=== PATIENT | female | born 1960 | race Caucasian/White ===

== ENCOUNTER 2021-03-24 17:16 | Emergency (ER) | payer MEDICARE, MEDICAID, SELFPAY | END 2021-03-24 19:10 | disposition left against medical advice (07) | PROVIDERS: Emergency Provider Emergency Medicine; PCP Internal Medicine | DX: S09.90XA Unspecified injury of head, initial encounter (principal); W19.XXXA Unspecified fall, initial encounter; Y93.9 Activity, unspecified; Y92.9 Unspecified place or not applicable; Y99.9 Unspecified external cause status ==

== ENCOUNTER 2022-04-20 13:12 | Emergency (ER) | payer MEDICARE, MEDICAID, SELFPAY ==
--- NOTE | ~2022-04-20 | CT_ITS ---
CT ANGIOGRAM NECK WITH CONTRAST CT ANGIOGRAM BRAIN WITH CONTRAST CLINICAL INFORMATION: Left facial and left arm/hand numbness. Rule out stroke. COMPARISON: None available. TECHNIQUE: Test bolus sequences followed by intravenous administration 70 mL of Omnipaque 350. Helical imaging was performed in the axial plane from the thoracic inlet to the skull vertex. Delayed postcontrast imaging of the head was also performed. The data was processed at the apparatus engineering technologist workstation for generation of MIP sequences. Angled MIPs and volume rendered reformatted images were also generated at an offline 3D workstation under concurrent supervision. Stenoses are assessed in accordance with NASCET criteria unless otherwise indicated. This CT examination was performed using dose optimization techniques as appropriate, variously including the following: *Automated exposure control *Adjustment of mA and/or kV according to patient size (this includes techniques or standardized protocols for targeted exams where dose is matched to indication/reason for exam; i.e. extremities or head) *Use of iterative reconstruction technique FINDINGS: BRAIN: [There is no intracranial hemorrhage, hydrocephalus, extra-axial surface collection, midline shift, or other herniation pattern. [place] to white matter differentiation is diffusely maintained without evidence of an evolved acute territorial infarct. The basilar cisterns are preserved. No significant soft tissue abnormality. No acute osseous abnormality. The paranasal sinuses and the mastoid air cells are well aerated.] Significant leftward deviation of the nasal septum. CERVICAL SOFT TISSUES AND LUNG APICES: Biapical pleural parenchymal scarring. Multilevel cervical spondylosis. No significant soft tissue findings within the neck. NECK CTA: [There is a classic 3 vessel configuration of the aortic arch. Proximal arch vessels are non-stenotic. The vertebral arteries are codominant. No significant ostial stenosis is visualized on either side. Both vertebral arteries are widely patent throughout their extracranial cervical course. Both common carotid arteries are normal in course and caliber.] Atherosclerotic disease results in less than 50% stenoses of the proximal internal carotid arteries bilaterally. BRAIN CTA: [There is normal opacification of major intracranial arteries. No focal flow-limiting stenosis nor discrete proximal large artery occlusion. No aneurysm. Timing of the contrast bolus allows assessment of the major dural venous sinuses, which all opacify normally] CT/CT angio head neck IMPRESSION: - No acute intracranial findings. If focal neurologic deficit persists, MRI would be more sensitive in evaluation. - No acute arterial occlusions and no significant arterial stenoses within the head or neck.
--- NOTE | ~2022-04-20 | XR_ITS ---
EXAMINATION: XR CHEST CLINICAL INFORMATION: Trochlea symptoms COMPARISON: 12/07/2018 TECHNIQUE: 2 views of the chest were obtained. FINDINGS: The lungs are well expanded. There is no focal consolidation, edema, or effusion. No pneumothorax. The cardiomediastinal silhouette is within normal limits. No acute osseous abnormality. Mild degenerative changes of the spine. XR/XR chest 2V IMPRESSION: No acute pulmonary finding.
[2022-04-20 13:22] VITALS: BP 177/88; PULSE 83; RESP 20; TEMP 37.1; O2SAT 96; BMI 24.5
--- NOTE | 2022-04-20 13:28 | ECG_ITS ---
Test Reason : l arm tingling Blood Pressure : / mmHG Vent. Rate : 083 BPM Atrial Rate : 083 BPM P-R Int : 120 ms QRS Dur : 084 ms QT Int : 378 ms P-R-T Axes : 036 026 037 degrees QTc Int : 444 ms Normal sinus rhythm Normal ECG When compared with ECG of 22-MAR-2019 01:04, No significant change was found Referred By: Generic ED Physician Electronically Signed By:SANTI HILL
[2022-04-20 13:45] LABS: MANUAL DIFF FLAG NO
[2022-04-20 13:47] LABS: Basophils Absolute Auto 0.1 X10*3/uL (0.0-0.2); Basophils Percent Auto 0.7 % (0-2); Eosinophils Absolute Auto 0.2 X10*3/uL (0.0-0.4); Eosinophils Percent Auto 2.4 % (0-4); Hematocrit 39.5 % (37.0-47.0); Hemoglobin 13.5 g/dl (12.0-16.0); Imm Gran Abs Auto 0.04 X10*3/uL (0.00-0.03); Imm Gran Pct Auto 0.5 % (0.0-0.4); Lymphocytes Absolute Auto 1.7 X10*3/uL (1.2-4.9); Lymphocytes Percent Auto 23.1 % (20-40); Mean Corpuscular HGB Conc 34.2 g/dl (31.0-35.0); Mean Corpuscular Hemoglobin 29.7 pg (27.0-33.0); Mean Corpuscular Volume 86.8 fL (80.0-98.0); Mean Platelet Volume 9.2 fL (9.4-12.3); Monocytes Absolute Auto 0.5 X10*3/uL (0.1-1.2); Neutrophils Absolute Auto 4.9 x10*3/uL (2.0-8.3); Neutrophils Percent Auto 66.3 % (45-73); Platelet Count 261 X10*3/uL (160-400); Red Blood Count 4.55 X10*6/uL (4.20-5.50); Red Cell Distribution Width 12.9 % (11.0-16.0); White Blood Count 7.4 X10*3/uL (4.8-10.8)
[2022-04-20 14:04] LABS: COVID-19 Test Negative (Negative); IDNOW Serial# 16C4AD1C
--- NOTE | 2022-04-20 14:12 | ED_ITS ---
HPI - Neuro Symptoms/Deficit General Chief Complaint: Stroke Stated Complaint: L Side Facial Arm Numbness Time Seen by Provider: 04/20/22 14:08 Source: patient, RN notes reviewed and old records reviewed Mode of arrival: ambulatory Limitations: no limitations History of Present Illness HPI Narrative: 62-year-old female with a past medical history of hypertension, not currently taking medications, presents to the emergency department today with left-sided facial numbness and left arm numbness. The patient states she had 1 episode approximately 11 30 which lasted about 10 minutes of left facial numbness alone. The patient states she looked in the mirror, and she was able to smile, and has not noted any loss of strength. Approximately 45 minutes later, the patient had another episode, which is still ongoing. She denies any headaches, visual disturbances, or motor weakness. Onset (ago): hour(s) Time: 11:30 Last Observed Normal: 11:30 Location: left face and left arm History of same: No Severity: moderate Quality: numb and tingling Relieving factors: none Exacerbating factors: none Context: sudden onset On Anticoagulants: No Treatments Prior to Arrival: Aspirin ( patient took 650 mg of aspirin prior to arrival) Related Data Allergies Allergy/AdvReac Type Severity Reaction Status Date / Time Penicillins [PENICILLINS] Allergy Unknown RASH Unverified 04/01/20 14:51 Review of Systems Constitutional: Constitutional: Denies fever(s) and Denies headache(s) Eyes: Eyes: Denies blurry vision, Denies loss of peripheral vision and Denies loss of vision ENT: Reports Normal hearing present, Denies headache(s), Denies epistaxis, Denies mouth pain and Denies neck pain Cardiovascular: Cardiovascular: Denies chest pain, Denies chest pain at rest and Denies dyspnea Respiratory: Respiratory: Denies dyspnea and Denies wheezing Gastrointestinal: Gastrointestinal: Denies abdominal pain, Denies diarrhea and Denies nausea Genitourinary: Genitourinary: Reports no additional female genitourinary complaints Musculoskeletal: Musculoskeletal: Reports no additional musculoskeletal complaints, Denies abnormal gait, Denies neck pain, Reports numbness and Reports tingling Integumentary/Breasts: Skin/Breast: Denies pruritus and Denies rash Neurologic: Reports Normal hearing present, Denies Abnormal speech present, Denies abnormal gait, Denies behavioral changes, Denies confusion, Denies headache(s), Denies lack of coordination, Denies focal weakness, Denies loss of vision, Denies memory loss, Reports numbness, Reports Sensory deficit (Neuro) ( decreased sensation noted left face and left dorsal surface of the arm), Reports tingling and Reports paresthesias Psychiatric: Psychiatric: Denies behavioral changes, Denies confusion and Denies memory loss Endocrine: Endocrine: Reports no additional endocrine complaints Hematologic/Lymphatic: Hematologic/Lymphatic: Reports no additional hematologic/lymphatic complaints Allergic/Immunologic: Allergic/Immunologic: Reports no additional allergic/immunologic complaints and Denies wheezing PMFSH Past Medical History Source: nursing notes reviewed Social History Social History Advance Directives: No Advance Directives Information Provided: No Physical Exam Vital Signs: Vital Signs: Last Vital Signs Temp 98.7 F 04/20/22 13:22 Pulse 83 04/20/22 13:22 Resp 20 04/20/22 13:22 BP 177/88 H 04/20/22 13:22 Pulse Ox 96 04/20/22 13:22 O2 Del Method 04/20/22 13:22 BMI result Body Mass Index 24.5 Const: General: cooperative, healthy appearing and comfortable; No confusion Nutritional Appearance: average body habitus Orientation/consciousness: oriented to person, oriented to place, oriented to time and No confusion HEENT: Head: Yes normal to inspection, Yes normocephalic, Yes atraumatic and No Temporal artery tenderness present Ears: hearing grossly normal bilaterally General nose exam: Normal external nose present Face and sinus: Yes face symmetric and Yes other ( numbness is noted to touch of the left side of the face) Mouth: Normal oral and palatal mucosa present and normal tongue Eyes: General: appearance normal, both eyes and all related structures Alignment and Position: position normal Periorbital: periorbital findings normal Eyelids: Yes eyelids normal Conjunctivae: conjunctivae normal Sclerae: sclerae normal Corneas: corneas normal Pupils: Equal, round and reactive pupils present and not dilated EOM: EOMs intact bilaterally Neck: Neck: Yes normal visual inspection, Yes full ROM and Yes no meningeal signs Chest: Chest palpation & inspection: normal inspection of the chest and no crepitus Resp: Effort & Inspection: normal respiratory effort, able to speak in complete sentences, no stridor and not tachypneic Auscultation: clear to auscultation bilaterally Cardio: Jugular venous distension: no JVD Rate: regular rate Rhythm: regular rhythm Heart sounds: no murmurs GI: Inspection: Yes normal to inspection : General: Yes no CVA tenderness Back/Spine/Pelvis: Back: no CVA tenderness Cervical Spine: cervical ROM normal Skin: General skin exam: no rashes or lesions noted, no jaundice and no mottling Wounds: no wounds Neuro: General: oriented to person, oriented to place, oriented to time, no meningeal signs, no focal motor deficits, CN's II-XI intact bilaterally, deep tendon reflexes 2+ bilaterally and No confusion Cranial nerves: Yes CN's II- XII intact bilaterally, Yes Equal, round and reactive pupils present and Yes Normal hearing present Cognition (Neuro): normal cognition Speech: No Abnormal speech present Gait exam (Neuro): Normal gait present Motor exam (neuro): 5/5 motor strength present throughout Sensory Exam: Sensory deficit (Neuro) ( decreased sensation noted left face and left dorsal surface of the arm) Coordination: [id number] test normal Pupils: Normal pupillary reactivity/response: bilateral Extrem: General: Yes normal to inspection and Yes full ROM Right upper extr emity: elbow/forearm Details: distal pulses intact Left upper extremity: elbow/forearm Details: normal to inspection and distal pulses intact Psych: Appearance: grossly normal and well kempt Mental Status: mental status grossly normal Speech and movement: Normal speech and movement present Affect: normal affect Attitude: cooperative Course Reevaluation(s) Reevaluation #1: Patient states that all of her symptoms have resolved except for some minimal residual numbness of the left upper lip. Time: 16:39 MDM - Neuro Symptoms/Deficit MDM Narrative Medical decision making narrative: 62-year-old female with past medical history of hypertension and a smoker who presented to the emergency department with symptoms of TIA (left facial numbness and left arm numbness ). Patient underwent CT and CTA of the head and neck which were unremarkable per Radiology. I discussed the continued workup with the patient which would include echocardiogram, MRI of the head and neck and potentially carotid duplex. The patient explained that she has a disabled at home who she needs to care for, and she is unable to stay in hospital for the additional workup. She states that she will call her primary care doctor 1st thing in the morning to arrange for outpatient testing. She is advised to continue aspirin daily, and return to the emergency department for recurrent or worsening symptoms. Differential Diagnosis Differential diagnosis: Likely peripheral neuropathy and transient cerebral ischemia Medical Records Attestation: I reviewed the patient's medical records. Lab Data Attestation: I reviewed the patient's lab results. Lab results narrative: CBC and chemistry are normal. PT, INR and COVID are all negative as well. Result diagrams: 04/20/22 13:40 04/20/22 13:40 Labs: Lab Results 04/20/22 04/20/22 04/20/22 Range/Units 13:40 13:40 13:40 WBC 7.4 (4.8-10.8) X10*3/uL RBC 4.55 (4.20-5.50) X10*6/uL Hgb 13.5 (12.0-16.0) g/dl Hct 39.5 (37.0-47.0) % MCV 86.8 (80.0-98.0) fL MCH 29.7 (27.0-33.0) pg MCHC 34.2 (31.0-35.0) g/dl RDW 12.9 (11.0-16.0) % Plt Count 261 (160-400) X10*3/uL MPV 9.2 L (9.4-12.3) fL Immature Gran % (Auto) 0.5 H (0.0-0.4) % Neut % (Auto) 66.3 (45-73) % Lymph % (Auto) 23.1 (20-40) % [place] % (Auto) 7.0 (2-11) % Eos % (Auto) 2.4 (0-4) % Baso % (Auto) 0.7 (0-2) % Lymph # (Auto) 1.7 (1.2-4.9) X10*3/uL [place] # (Auto) 0.5 (0.1-1.2) X10*3/uL Eos # (Auto) 0.2 (0.0-0.4) X10*3/uL Baso # (Auto) 0.1 (0.0-0.2) X10*3/uL Abs Immat Gran (auto) 0.04 H (0.00-0.03) X10*3/uL Absolute Neuts (auto) 4.9 (2.0-8.3) x10*3/uL Absolute Nucleated RBC 0.000 (0.0-0.012) X10*3/uL Nucleated RBC % (auto) 0.0 (0.0-0.2) /100WBC PT (10.0-13.1) SEC INR (0.9-1.1) Sodium 139 (135-145) mmol/L Potassium 4.1 (3.3-5.1) mmol/L Chloride 106 (96-108) mmol/L Carbon Dioxide 23 (22-29) mmol/L Anion Gap 14 (12-20) BUN 18 H (9-16) mg/dL Creatinine 0.95 (0.5-1.4) mg/dL Estim Creat Clear Calc 55.9 Estimated GFR 60 Random Glucose 109 (60-115) mg/dL Calcium 9.6 (8.4-10.2) mg/dL Total Bilirubin 0.3 (0.0-1.0) mg/dL Direct Bilirubin < 0.2 (0.0-0.5) mg/dL AST 17 (5-31) U/L ALT 16 (0-31) U/L Alkaline Phosphatase 93 (39-117) U/L Troponin I High Sens < 3.5 (<3.5-17.0) ng/L Total Protein 6.9 (6.5-8.0) g/dL Albumin 4.3 (3.5-5.0) g/dL Lipase 26 (8-78) U/L COVID-19 ([facility]) (Negative) COVID-19 Clin Com 04/20/22 04/20/22 Range/Units 13:40 14:55 WBC (4.8-10.8) X10*3/uL RBC (4.20-5.50) X10*6/uL Hgb (12.0-16.0) g/dl Hct (37.0-47.0) % MCV (80.0-98.0) fL MCH (27.0-33.0) pg MCHC (31.0-35.0) g/dl RDW (11.0-16.0) % Plt Count (160-400) X10*3/uL MPV (9.4-12.3) fL Immature Gran % (Auto) (0.0-0.4) % Neut % (Auto) (45-73) % Lymph % (Auto) (20-40) % [place] % (Auto) (2-11) % Eos % (Auto) (0-4) % Baso % (Auto) (0-2) % Lymph # (Auto) (1.2-4.9) X10*3/uL [place] # (Auto) (0.1-1.2) X10*3/uL Eos # (Auto) (0.0-0.4) X10*3/uL Baso # (Auto) (0.0-0.2) X10*3/uL Abs Immat Gran (auto) (0.00-0.03) X10*3/uL Absolute Neuts (auto) (2.0-8.3) x10*3/uL Absolute Nucleated RBC (0.0-0.012) X10*3/uL Nucleated RBC % (auto) (0.0-0.2) /100WBC PT 10.6 (10.0-13.1) SEC INR 0.9 (0.9-1.1) Sodium (135-145) mmol/L Potassium (3.3-5.1) mmol/L Chloride (96-108) mmol/L Carbon Dioxide (22-29) mmol/L Anion Gap (12-20) BUN (9-16) mg/dL Creatinine (0.5-1.4) mg/dL Estim Creat Clear Calc Estimated GFR Random Glucose (60-115) mg/dL Calcium (8.4-10.2) mg/dL Total Bilirubin (0.0-1.0) mg/dL Direct Bilirubin (0.0-0.5) mg/dL AST (5-31) U/L ALT (0-31) U/L Alkaline Phosphatase (39-117) U/L Troponin I High Sens (<3.5-17.0) ng/L Total Protein (6.5-8.0) g/dL Albumin (3.5-5.0) g/dL Lipase (8-78) U/L COVID-19 ([facility]) Negative (Negative) COVID-19 Clin Com See Note Imaging Data CT/CTA of the head: Radiologist's impression: - No acute intracranial findings. If focal neurologic deficit persists, MRI would be more sensitive in evaluation. ? - No acute arterial occlusions and no significant arterial stenoses within the head or neck. ECG Data Attestation: I personally reviewed and interpreted this ECG as follows: ECG interpretation date: 04/20/22 ECG interpretation time: 14:10 Interpretation: EKG shows a normal sinus rhythm, with normal intervals and a normal rate of 83. No acute ischemic changes are noted. There is a biphasic T-wave in lead V2, but otherwise unremarkable. Scores Additional Scores ABCD2 Score: Score: 3 Comment: ABCD? Score for TIA from [employer] on 04/20/2022 All calculations should be rechecked by clinician prior to use RESULT SUMMARY: 3 points Per the validation study, 0-3 points: Low Risk 2-Day Stroke Risk: 1.0% 7-Day Stroke Risk: 1.2% 90-Day Stroke Risk: 3.1% INPUTS: Age >=60 years ?> 1 = Yes BP >=140/90 mmHg ?> 1 = Yes Clinical features of the TIA ?> 0 = Other symptoms Duration of symptoms ?> 1 = 10-59 minutes History of diabetes ?> 0 = No NIH Stroke Scale Internal: Initial- Upon Arrival Time: 14:37 Level of Consciousness: Alert Level of Consciousness Questions: Answers both questions correctly Level of Consciousness Commands: Performs both tasks correctly Best Gaze: Normal Visual: No visual loss Facial Palsy: Normal Motor Arm (Right): No drift Motor Arm (Left): No drift Motor Leg (Right): No drift Motor Leg (Left): No drift Limb Ataxia: Absent Sensory: Mild to moderate sensory loss Best Language: No aphasia Dysarthia: Normal Extinction and Inattention: No abnormality Score: 1 Discharge Plan Discharge Clinical Impression: Transient cerebral ischemia Patient Disposition: Left Against Medical Advice Instructions: Transient Ischemic Attack (ED) Additional Instructions: It is imperative that you call your primary care physician tomorrow. You need an MRI of the head and neck, and echocardiogram, and possibly a carotid duplex ultrasound to fully evaluate and rule out TIA/stroke. Continue to take aspirin, 325 mg once daily. Stand Alone Forms: Against Medical Advice
[2022-04-20 14:18] LABS: Alanine Aminotransferase 16 U/L (0-31); Albumin Level 4.3 g/dL (3.5-5.0); Alkaline Phosphatase 93 U/L (39-117); Anion Gap 14 (12-20); Aspartate Amino Transferase 17 U/L (5-31); Bilirubin Direct < 0.2 mg/dL (0.0-0.5); Bilirubin Total 0.3 mg/dL (0.0-1.0); Blood Urea Nitrogen 18 mg/dL (9-16); Calcium 9.6 mg/dL (8.4-10.2); Carbon Dioxide 23 mmol/L (22-29); Chloride 106 mmol/L (96-108); Creatinine Clr Calc Pharmacy 55.9; Estimated Glomerular Filt Rate 60; Glucose Random 109 mg/dL (60-115); Lipase 26 U/L (8-78); Potassium 4.1 mmol/L (3.3-5.1); Sodium 139 mmol/L (135-145); Total Protein 6.9 g/dL (6.5-8.0)
[2022-04-20 14:19] LABS: Troponin-I High Sensitivity < 3.5 ng/L (<3.5-17.0)
[2022-04-20 15:29] LABS: INTERNATIONAL NORM RATIO 0.9 (0.9-1.1); Prothrombin Time 10.6 SEC (10.0-13.1)
[2022-04-20] MEDS: iohexoL 350 MG/ML 100 ML INFUS..BTL IV (15:45)
== END 2022-04-20 17:47 | disposition left against medical advice (07) ==
PROVIDERS: Emergency Provider Emergency Medicine
DX: G45.9 Transient cerebral ischemic attack, unspecified (principal); R20.0 Anesthesia of skin; I10 Essential (primary) hypertension; F17.210 Nicotine dependence, cigarettes, uncomplicated; Z20.822 Contact with and (suspected) exposure to COVID-19
CPT/HCPCS: 36415; 70496; 70498; 71046; 80048; 80076; 83690; 84484; 85025; 85610; 87635; 93005; 99283; 99284; Q9967

== ENCOUNTER 2022-04-21 08:01 | Inpatient (IN) | payer MEDICARE, MEDICAID, SELFPAY ==
[2022-04-21] VITALS (9 sets, daily range): BP systolic 147–188; BP diastolic 72–97; PULSE 62–82; RESP 14–20; TEMP 36.4–37.1; O2SAT 93–99; BMI 24.4
--- NOTE | ~2022-04-21 | MR_ITS ---
EXAMINATION: MR BRAIN WITHOUT CONTRAST CLINICAL INFORMATION: Left-sided facial numbness. Left arm numbness. COMPARISON: CTA head and neck from 04/20/2022. TECHNIQUE: MRI of the brain was obtained using routine sequences without contrast. FINDINGS: Small focus of restricted diffusion within the lateral aspect of the right thalamus. Associated T2 FLAIR hyperintensity. No additional restricted diffusion. No evidence of acute or chronic hemorrhagic products on heme-sensitive imaging. Scattered periventricular and deep white matter T2 FLAIR hyperintensities consistent with mild underlying microangiopathy. Proportional prominence of the ventricles and sulcal spaces without evidence of obstructive hydrocephalus. No abnormal mass effect. No midline shift. The sella turcica is mildly expanded with flattening of the pituitary gland. Normal positioning of the cerebellar tonsils. Normal arterial and venous vascular flow voids are present. Normal, homogeneous marrow signal. Mild mucosal thickening of the paranasal sinuses. Moderate leftward nasal septal deviation. No signal abnormalities within the mastoids. MR/MR head/brain wo con IMPRESSION: 1. Small acute infarct of the right thalamus. 2. No additional acute intracranial abnormalities. 3. Mild underlying microangiopathy.
--- NOTE | 2022-04-21 09:09 | PC.NURSE ---
PT AMBULATORY IN/OUT OF ED SEVERAL TIMES TO GO SMOKE. SHE IS UPSET STATING SHE SHOULD GET PRIORITY, PROCESS REVIEWED WITH PT
--- NOTE | 2022-04-21 11:50 | ED_ITS ---
HPI - Neuro Symptoms/Deficit General Chief Complaint: Neuro Symptoms/Deficit Stated Complaint: stroke symptoms Time Seen by Provider: 04/21/22 11:49 Source: patient Mode of arrival: ambulatory Limitations: no limitations History of Present Illness HPI Narrative: The patient is a 62 year old female with a PMG significant for uncontrolled HTN. The patient reports she developed numbness of her left face at 11:30am y esterday, the numbness went away after 30 minutes. She then developed numbness of the left face and arm at 12:30pm and she seeked medical attention in the ER. She had negative CTA head/neck at that time. Her symptoms resolved. She refused to be admitted and proceeded to go home. Then at 9pm yesterday her symptoms returned, she awoke at 2am with worsening of symptoms and returned to the ED. The patient reports she is currently experiencing her symptoms and they have sense worsened. The patient reports numbness is like getting a shot of novacane she is experiencing it on the left side of her face, and the inside of her mouth and left arm, a tight band like headache, and left eye burning. The patient denies fever, close sick contacts, and recent trauma. The patient reports having chicken poxs as a child. The patient is not on any HTN medication and she endorses .5 PPD Onset (ago): day(s) (1) Time: 21:00 Location: left face and left arm History of same: Yes Severity: moderate Quality: numb, tingling and constant Relieving factors: none Exacerbating factors: none Context: gradual onset On Anticoagulants: No Treatments Prior to Arrival: none Related Data Home Medications Medication Instructions Recorded Confirmed aspirin 325 mg tablet 325 mg PO Q4H PRN Pain (Scale 04/21/22 04/21/22 Score 1-3) calcium carbonate 600 mg calcium 600 mg PO DAILY 04/21/22 04/21/22 (1,500 mg) tablet (Calcium) cholecalciferol (vitamin D3) 25 25 mcg PO DAILY 04/21/22 04/21/22 mcg (1,000 unit) capsule (Vitamin D3) magnesium oxide 400 mg PO DAILY 04/21/22 04/21/22 turmeric root extract 500 mg 500 mg PO DAILY 04/21/22 04/21/22 capsule Allergies Allergy/AdvReac Type Severity Reaction Status Date / Time Penicillins [PENICILLINS] Allergy Unknown RASH Unverified 04/01/20 14:51 Review of Systems Review of Systems: Constitutional: No Fever, No Chills ENT/Mouth: No sore throat, No Rhinorrhea, No Swallowing Difficulty Eyes: No Eye Pain, No Swelling, No Redness Cardiovascular: No Chest Pain, No SOB, No Orthopnea, No Edema Respiratory: No Cough, No Sputum, No Wheezing, No dyspnea Gastrointestinal: No Nausea, No Vomiting, No Diarrhea, No abdominal Pain, No Hematochezia, No Melena Genitourinary: No Dysuria, No Urinary Frequency, No Hematuria Musculoskeletal: No joint pain, No Myalgias Skin: No Skin Lesions, No rash Neuro: No Weakness, + left face and left arm Numbness, No Dizziness, + Headache Psych: No Anxiety/Panic, No Depression Heme/Lymph: No Bruising, No Lymphadenopathy Endocrine: No Polyuria, No Polydipsia PMFSH Social History Social History Advance Directives: No Advance Directives Information Provided: No Physical Exam Vital Signs: Vital Signs: Last Vital Signs Temp 97.8 F 04/21/22 14:19 Pulse 62 04/21/22 14:19 Resp 16 04/21/22 14:19 BP 185/93 H 04/21/22 14:19 Pulse Ox 94 04/21/22 14:19 O2 Del Method 04/21/22 14:19 BMI result Body Mass Index 24.4 Appearance: Alert. Oriented X3. No acute distress. Eyes: Pupils equal, round and reactive to light. ENT: Pharynx normal. Bulging left TM noted, unable to see the right TM due to cerumen. Neck: Normal inspection. Neck supple. CVS: Normal heart rate and rhythm. Pulses normal. Respiratory: No respiratory distress. Breath sounds normal. Skin: Skin warm and dry. Normal skin color. Normal skin turgor. No rashes. Extremities: No lower extremity edema. Neuro: Oriented X 3. No motor deficit. + subjective sensory deficit to left face and left UE. CN II-XII intact bilaterally. Left sided abnomal nose to finger test. No pronator drift, Normal heel to wilks, steady and stable gait, able to heel walk and toe walk, normal tandem gait. Normal Rapid alternating movements. Negative Romberg test. Course Course Course Narrative: The patient is a 62 year old female with a PMH of unmanaged HTN. The patient reports left sided face and left arm numbness for 1 day. The patient has no CVA history - no history of blood clots, NM or coagulation abnormalities. Exam significant for a left budging TM and abnormal left sided finger to nose test. Pateint was seen in the ED yesterday for similar presentation, but left AMA. Patient is willing to be admitted. DDX: CVA vs TIA - ongoing numbness today. NEEDS MRI HTN Urgency - symptoms could be due to poorly controlled HTN. Shingles is unlikely due to lack of rash, and numbness does not follow a dermatomal pattern. Trigeminal Neuralgia may explain the eliud-Paresthesia, though would not present with left are paresthesia. Arterial dissection/ occlusion is unlikely - patient does not have neck pain, or signs of low perfusion. Plan: - MRI - Will need admission for CVA and TIA workup, she is agreeable at this time - CTA of the head and neck is not indicated at this time due to the patient having a negative CTA yesterday - Patient is not a TPA candidate - BP control with PO lisinopril for now, reassess. get IV access Reevaluation(s) Reevaluation #1: BP elevated 200/100 after 5 mg oral lisinopril. will give 10 mg IV labetalol and reassess. MRI still pending. Planning for admission, hospitalist down to evaluate Reevaluation #2: Hospitalist deferring admission for now until BP improved. Reevaluation #3: after 10 mg IV labetalol BP improved to 170s systolic. hospitalist updated. MDM - Neuro Symptoms/Deficit Medical Records Attestation: I reviewed the patient's medical records. Lab Data Attestation: I reviewed the patient's lab results. Result diagrams: 04/21/22 12:31 04/21/22 12:31 Labs: Lab Results 04/21/22 04/21/22 04/21/22 Range/Units 12:31 12:31 12:31 WBC 6.1 (4.8-10.8) X10*3/uL RBC 4.66 (4.20-5.50) X10*6/uL Hgb 13.5 (12.0-16.0) g/dl Hct 40.6 (37.0-47.0) % MCV 87.1 (80.0-98.0) fL MCH 29.0 (27.0-33.0) pg MCHC 33.3 (31.0-35.0) g/dl RDW 13.1 (11.0-16.0) % Plt Count 269 (160-400) X10*3/uL MPV 9.3 L (9.4-12.3) fL Immature Gran % (Auto) 0.5 H (0.0-0.4) % Neut % (Auto) 62.5 (45-73) % Lymph % (Auto) 26.3 (20-40) % [place] % (Auto) 7.0 (2-11) % Eos % (Auto) 2.9 (0-4) % Baso % (Auto) 0.8 (0-2) % Lymph # (Auto) 1.6 (1.2-4.9) X10*3/uL [place] # (Auto) 0.4 (0.1-1.2) X10*3/uL Eos # (Auto) 0.2 (0.0-0.4) X10*3/uL Baso # (Auto) 0.1 (0.0-0.2) X10*3/uL Abs Immat Gran (auto) 0.03 (0.00-0.03) X10*3/uL Absolute Neuts (auto) 3.8 (2.0-8.3) x10*3/uL Absolute Nucleated RBC 0.000 (0.0-0.012) X10*3/uL Nucleated RBC % (auto) 0.0 (0.0-0.2) /100WBC PT 10.1 (10.0-13.1) SEC INR 0.9 (0.9-1.1) APTT 30.4 (26.0-36.4) SEC Sodium 140 (135-145) mmol/L Potassium 4.1 (3.3-5.1) mmol/L Chloride 107 (96-108) mmol/L Carbon Dioxide 24 (22-29) mmol/L Anion Gap 13 (12-20) BUN 17 H (9-16) mg/dL Creatinine 0.82 (0.5-1.4) mg/dL Estim Creat Clear Calc 64.8 Estimated GFR > 60 Random Glucose 111 (60-115) mg/dL Calcium 9.5 (8.4-10.2) mg/dL Magnesium 1.9 (1.6-2.6) mg/dL Total Bilirubin < 0.2 (0.0-1.0) mg/dL Direct Bilirubin < 0.2 (0.0-0.5) mg/dL AST 16 (5-31) U/L ALT 17 (0-31) U/L Alkaline Phosphatase 93 (39-117) U/L Total Protein 6.8 (6.5-8.0) g/dL Albumin 4.3 (3.5-5.0) g/dL Urine Opiates Screen (Not Detect) Urine Fentanyl Screen (Not Detect) Ur Barbiturates Screen (Not Detect) Ur Phencyclidine Scrn (Not Detect) Ur Amphetamines Screen (Not Detect) U Benzodiazepines Scrn (Not Detect) Urine Cocaine Screen (Not Detect) U Marijuana (THC) Screen (Not Detect) COVID-19 (MANINDER) (Negative) COVID-19 Clin Com 04/21/22 04/21/22 Range/Units 12:31 13:03 WBC (4.8-10.8) X10*3/uL RBC (4.20-5.50) X10*6/uL Hgb (12.0-16.0) g/dl Hct (37.0-47.0) % MCV (80.0-98.0) fL MCH (27.0-33.0) pg MCHC (31.0-35.0) g/dl RDW (11.0-16.0) % Plt Count (160-400) X10*3/uL MPV (9.4-12.3) fL Immature Gran % (Auto) (0.0-0.4) % Neut % (Auto) (45-73) % Lymph % (Auto) (20-40) % [place] % (Auto) (2-11) % Eos % (Auto) (0-4) % Baso % (Auto) (0-2) % Lymph # (Auto) (1.2-4.9) X10*3/uL [place] # (Auto) (0.1-1.2) X10*3/uL Eos # (Auto) (0.0-0.4) X10*3/uL Baso # (Auto) (0.0-0.2) X10*3/uL Abs Immat Gran (auto) (0.00-0.03) X10*3/uL Absolute Neuts (auto) (2.0-8.3) x10*3/uL Absolute Nucleated RBC (0.0-0.012) X10*3/uL Nucleated RBC % (auto) (0.0-0.2) /100WBC PT (10.0-13.1) SEC INR (0.9-1.1) APTT (26.0-36.4) SEC Sodium (135-145) mmol/L Potassium (3.3-5.1) mmol/L Chloride (96-108) mmol/L Carbon Dioxide (22-29) mmol/L Anion Gap (12-20) BUN (9-16) mg/dL Creatinine (0.5-1.4) mg/dL Estim Creat Clear Calc Estimated GFR Random Glucose (60-115) mg/dL Calcium (8.4-10.2) mg/dL Magnesium (1.6-2.6) mg/dL Total Bilirubin (0.0-1.0) mg/dL Direct Bilirubin (0.0-0.5) mg/dL AST (5-31) U/L ALT (0-31) U/L Alkaline Phosphatase (39-117) U/L Total Protein (6.5-8.0) g/dL Albumin (3.5-5.0) g/dL Urine Opiates Screen Not Detected (Not Detect) Urine Fentanyl Screen Not Detected (Not Detect) Ur Barbiturates Screen Not Detected (Not Detect) Ur Phencyclidine Scrn Not Detected (Not Detect) Ur Amphetamines Screen Not Detected (Not Detect) U Benzodiazepines Scrn Not Detected (Not Detect) Urine Cocaine Screen Not Detected (Not Detect) U Marijuana (THC) Screen Not Detected (Not Detect) COVID-19 (MANINDER) Negative (Negative) COVID-19 Clin Com See Note ECG Data Attestation: I personally reviewed and interpreted this ECG as follows: ECG interpretation date: 04/21/22 Prior ECG tracings: available for review Interpretation: normal sinus rhythm, HR 63, normal SC interval, normal QTc, no change from yesterday NIH Stroke Scale Internal: Initial- Upon Arrival Time: 12:22 Level of Consciousness: Alert Level of Consciousness Questions: Answers both questions correctly Level of Consciousness Commands: Performs both tasks correctly Best Gaze: Normal Visual: No visual loss Facial Palsy: Normal Motor Arm (Right): No drift Motor Arm (Left): No drift Motor Leg (Right): No drift Motor Leg (Left): No drift Limb Ataxia: Absent Sensory: Mild to moderate sensory loss Best Language: No aphasia Dysarthia: Normal Extinction and Inattention: No abnormality Score: 1 Critical Care Time Critical Care Time Critical Care Time: Yes Total Critical Care Time: 35 Attestation: I have personally provided critical care time exclusive of time spent on separately billable procedures. Time includes review of lab data, frequent bedside reassessments, discussion with consultants, and monitoring for potential decompensation. Intervention performed as documented. Discharge Plan Discharge Clinical Impression: Hypertensive urgency, Left facial numbness, Arm numbness left Patient Disposition: Admitted As Inpatient
--- NOTE | 2022-04-21 12:15 | ECG_ITS ---
Test Reason : STROKE SYMPTOMS Blood Pressure : / mmHG Vent. Rate : 063 BPM Atrial Rate : 063 BPM P-R Int : 112 ms QRS Dur : 100 ms QT Int : 430 ms P-R-T Axes : 030 050 056 degrees QTc Int : 440 ms Normal sinus rhythm Normal ECG When compared with ECG of 20-APR-2022 13:32, No significant change was found Referred By: Tanisha Schroeder Electronically Signed By:SANTI HILL
[2022-04-21 12:38] LABS: MANUAL DIFF FLAG NO
[2022-04-21 12:44] LABS: Basophils Absolute Auto 0.1 X10*3/uL (0.0-0.2); Basophils Percent Auto 0.8 % (0-2); Eosinophils Absolute Auto 0.2 X10*3/uL (0.0-0.4); Eosinophils Percent Auto 2.9 % (0-4); Hematocrit 40.6 % (37.0-47.0); Hemoglobin 13.5 g/dl (12.0-16.0); Imm Gran Abs Auto 0.03 X10*3/uL (0.00-0.03); Imm Gran Pct Auto 0.5 % (0.0-0.4); Lymphocytes Absolute Auto 1.6 X10*3/uL (1.2-4.9); Lymphocytes Percent Auto 26.3 % (20-40); Mean Corpuscular HGB Conc 33.3 g/dl (31.0-35.0); Mean Corpuscular Volume 87.1 fL (80.0-98.0); Mean Platelet Volume 9.3 fL (9.4-12.3); Monocytes Absolute Auto 0.4 X10*3/uL (0.1-1.2); Neutrophils Absolute Auto 3.8 x10*3/uL (2.0-8.3); Neutrophils Percent Auto 62.5 % (45-73); Platelet Count 269 X10*3/uL (160-400); Red Blood Count 4.66 X10*6/uL (4.20-5.50); Red Cell Distribution Width 13.1 % (11.0-16.0); White Blood Count 6.1 X10*3/uL (4.8-10.8)
[2022-04-21 12:50] LABS: INTERNATIONAL NORM RATIO 0.9 (0.9-1.1); Prothrombin Time 10.1 SEC (10.0-13.1)
[2022-04-21 12:52] LABS: Partial Thromboplastin Time 30.4 SEC (26.0-36.4)
[2022-04-21 12:58] LABS: COVID-19 Test Negative (Negative); IDNOW Serial# 9DB6401D
[2022-04-21 13:01] LABS: Alanine Aminotransferase 17 U/L (0-31); Albumin Level 4.3 g/dL (3.5-5.0); Alkaline Phosphatase 93 U/L (39-117); Anion Gap 13 (12-20); Aspartate Amino Transferase 16 U/L (5-31); Blood Urea Nitrogen 17 mg/dL (9-16); Calcium 9.5 mg/dL (8.4-10.2); Carbon Dioxide 24 mmol/L (22-29); Chloride 107 mmol/L (96-108); Creatinine Clr Calc Pharmacy 64.8; Estimated Glomerular Filt Rate > 60; Glucose Random 111 mg/dL (60-115); Magnesium 1.9 mg/dL (1.6-2.6); Potassium 4.1 mmol/L (3.3-5.1); Sodium 140 mmol/L (135-145); Total Protein 6.8 g/dL (6.5-8.0)
--- NOTE | 2022-04-21 13:10 | PHA.MEDREC ---
Pharmacy Consult ? Medication Reconciliation Pharmacy has completed the medication reconciliation. Spoke with patient in ED. Pt is only on OTC medications
[2022-04-21 13:14] LABS: Bilirubin Direct < 0.2 mg/dL (0.0-0.5); Bilirubin Total < 0.2 mg/dL (0.0-1.0)
[2022-04-21] MEDS: Nicotine 14 MG PATCH.TD24 TRANSDERMA (13:26)
[2022-04-21] MEDS: lisinopriL 5 MG TABLET PO (13:26)
[2022-04-21 13:45] LABS: Barbiturates, Urine Not Detected (Not Detect); Benzodiazepines Screen Urine Not Detected (Not Detect); Cannabinoid Screen Urine Not Detected (Not Detect); Fentanyl, urine Not Detected (Not Detect); Opiate Screen Urine Not Detected (Not Detect); Phencyclidine Screen Urine Not Detected (Not Detect)
[2022-04-21 13:56] LABS: Amphetamine Screen Urine Not Detected (Not Detect); Cocaine Screen Urine Not Detected (Not Detect)
[2022-04-21] MEDS: Labetalol HCL 100 MG/20 ML VIAL 10 MG IVPUSH (14:43)
--- NOTE | 2022-04-21 14:51 | MHC.STROKE ---
Addendum entered by Nicolle De Leon RN 04/21/22 19:47: Patient was assigned to Observation status by Dr. Logan, the MRI is + for a right Thalamic Ischemic Stroke which correlates with her symptoms. Dr. Hill notified. All stroke orders in place. Original Note: I MET WITH PATIENT AND I REVIEWED HER PRESENTATION WITH HER. 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 SHE CAME BACK TODAY BECAUSE THE SYMPTOMS RETURNED LAST NIGHT 04/20/22 AT 2100, THIS WAS THE 3RD TIME, LEFT FACE, ARM AND LEG NUMBNESS. SHE DECIDED TO COME BACK TODAY TO FIGURE OUT WHAT IS WRONG. SHE PASSED SWALLOW SCREEN PRIOR TO PO. I EXPLAINED WHY SHE WAS HAVING THE MRI. I REVIEWED THE STROKE EDUCATION BOOKLET AND HER INDIVIDUAL RISK FACTORS.
--- NOTE | 2022-04-21 15:18 | PC.NURSE ---
Stroke nurse Nicolle and KOKI Garay do not think it is necessary to have patient on peoplesoft hr developer in MRI.
--- NOTE | 2022-04-21 16:52 | P.HPHOSP_ITS ---
History of Present Illness Date of Service: 04/21/22 Attending physician on admission: Shukri Logan Chief Complaint: left face and left arm numbness 62-year-old female patient with past medical history significant for hypertension not on medication presented to [facility] on 04/20/2022 after she developed a brief episode of left facial numbness that lasted for 10- 15 minutes and resolved by itself, and hour later patient developed left facial numbness with radiation to left arm she took a dose of aspirin and came to the emergency room she had a CT head and neck done that showed no abnormality patient was advised for admission however she refused since she had to take care of her disabled part in a but at 21:00 last night symptoms returned with numbness of face radiating to left arm with no associated symptoms of speech impairment no visual symptoms no motor weakness the symptoms became worse she felt like Novocain so she woke up with the symptoms at 02:00 and return to the emergency room patient's symptoms are persistent without any change in intensity, she told emergency room provider that she had a bandlike headache and left eye burning at present she has no symptoms she denies associated fever chills she denies new medication she denies any trauma injury denies prior similar symptoms has had multiple to hold and she feels similar numbness like a Novocain shot, patient also noted to have significantly elevated blood pressure 200/110 in the emergency room treated with 10 mg of iv labetalol x2 and lisinopril with improvement in blood pressure to 177/82. Review of Systems Review of Systems: General no headache no dizziness no fever chills. CVS no chest pain, no palpitation. Respiratory no cough no sob. Gastrointestinal no nausea no vomiting, no abdominal pain Yes all other systems are reviewed and are negative [facility] Medical History (Updated 04/21/22 @ 17:02 by Shukri Logan MD) Hypertension Pertinent family history: mother alive and healthy has no medical issues, father of heart disease at age 79 no history of stroke no history of premature coronary artery disease. Social History Advance Directives: No Advance Directives Information Provided: No Meds Allergies Allergy/AdvReac Type Severity Reaction Status Date / Time Penicillins [PENICILLINS] Allergy Unknown RASH Unverified 04/01/20 14:51 Active Medications: Current Medications Acetaminophen (Acetaminophen 325 Mg Tablet) 650 mg PO Q6H PRN PRN Reason: Pain, Mild (Pain Scale 1-3) Amlodipine Besylate (Amlodipine Besylate 5 Mg Tablet) 5 mg PO DAILY MILTON; P rotocol Calcium Carbonate (Calcium Carbonate 500 Mg Tablet) 500 mg PO DAILY [facility] Enoxaparin Sodium (Enoxaparin Sodium 40 Mg/0.4 Ml Syringe) 40 mg SUBCUT Q24H [place] Magnesium Oxide (Magnesium Oxide 400 Mg Tablet) 400 mg PO DAILY [facility] Melatonin (Melatonin 3 Mg Tablet) 3 mg PO BEDTIME PRN PRN Reason: Insomnia Ondansetron HCl (Ondansetron Hcl 4 Mg/2 Ml Vial) 4 mg IVPUSH Q8H PRN PRN Reason: Nausea and Vomiting Pharmacy Consult (Consult Rx Perform Med Rec) 1 each MISCELLANE ONCE PRN PRN Reason: Consult order Sodium Chloride (0.9 % Sodium Chloride Flush 3 Ml Syringe) 3 ml IVFLUSH QSHIFT [facility] Vitamin D (Cholecalciferol (Vitamin D3) 25 Mcg Tablet) 25 mcg PO DAILY [facility] Home Medications Medication Instructions Recorded Confirmed Last Taken Type aspirin 325 mg tablet 325 mg PO Q4H PRN Pain (Scale 04/21/22 04/21/22 Unknown History Score 1-3) calcium carbonate 600 mg calcium 600 mg PO DAILY 04/21/22 04/21/22 Unknown History (1,500 mg) tablet (Calcium) cholecalciferol (vitamin D3) 25 25 mcg PO DAILY 04/21/22 04/21/22 Unknown History mcg (1,000 unit) capsule (Vitamin D3) magnesium oxide 400 mg PO DAILY 04/21/22 04/21/22 Unknown History turmeric root extract 500 mg 500 mg PO DAILY 04/21/22 04/21/22 Unknown History capsule Physical Exam Vital Signs and Narrative: Vital Signs: Last Vital Signs Temp 98.8 F 04/21/22 16:21 Pulse 66 04/21/22 16:21 Resp 19 04/21/22 16:21 BP 177/82 H 04/21/22 16:21 Pulse Ox 96 04/21/22 16:21 O2 Del Method 04/21/22 16:21 BMI result Body Mass Index 24.4 Const: Other: General Awake alert x3 sitting comfortably talking in full sentences clear speech, no acute distress. HEENT PERRLA,EOMI Neck supple no JVD. CVS regular rate rhythm, Respiratory lungs clear to auscultation, no respiratory distress, Gastrointestinal abdomen soft, nontender, bowel sounds audible Extremities no edema. Neuro nonfocal speech clear, face symmetrical no motor deficit, decreased sensation left side of face and left arm up to left hand. Skin no rash psych appropriate affect Results Labs CBC and Chem 7: 04/21/22 12:31 04/21/22 12:31 Labs: Laboratory Results - last 24 hr 04/21/22 04/21/22 04/21/22 12:31 12:31 12:31 MCV 87.1 MCH 29.0 MCHC 33.3 RDW 13.1 Plt Count 269 MPV 9.3 L Immature Gran % (Auto) 0.5 H Neut % (Auto) 62.5 Lymph % (Auto) 26.3 [place] % (Auto) 7.0 Eos % (Auto) 2.9 Baso % (Auto) 0.8 Lymph # (Auto) 1.6 [place] # (Auto) 0.4 Eos # (Auto) 0.2 Baso # (Auto) 0.1 Abs Immat Gran (auto) 0.03 Absolute Neuts (auto) 3.8 Absolute Nucleated RBC 0.000 Nucleated RBC % (auto) 0.0 PT 10.1 INR 0.9 APTT 30.4 Anion Gap 13 Estim Creat Clear Calc 64.8 Estimated GFR > 60 Random Glucose 111 Calcium 9.5 Magnesium 1.9 Total Bilirubin < 0.2 Direct Bilirubin < 0.2 AST 16 ALT 17 Alkaline Phosphatase 93 Total Protein 6.8 Albumin 4.3 Urine Opiates Screen Urine Fentanyl Screen Ur Barbiturates Screen Ur Phencyclidine Scrn Ur Amphetamines Screen U Benzodiazepines Scrn Urine Cocaine Screen U Marijuana (THC) Screen COVID-19 (MANINDER) COVID-19 Clin Com 04/21/22 04/21/22 12:31 13:03 MCV MCH MCHC RDW Plt Count MPV Immature Gran % (Auto) Neut % (Auto) Lymph % (Auto) [place] % (Auto) Eos % (Auto) Baso % (Auto) Lymph # (Auto) [place] # (Auto) Eos # (Auto) Baso # (Auto) Abs Immat Gran (auto) Absolute Neuts (auto) Absolute Nucleated RBC Nucleated RBC % (auto) PT INR APTT Anion Gap Estim Creat Clear Calc Estimated GFR Random Glucose Calcium Magnesium Total Bilirubin Direct Bilirubin AST ALT Alkaline Phosphatase Total Protein Albumin Urine Opiates Screen Not Detected Urine Fentanyl Screen Not Detected Ur Barbiturates Screen Not Detected Ur Phencyclidine Scrn Not Detected Ur Amphetamines Screen Not Detected U Benzodiazepines Scrn Not Detected Urine Cocaine Screen Not Detected U Marijuana (THC) Screen Not Detected COVID-19 (MANINDER) Negative COVID-19 Clin Com See Note Assessment and Plan (1) Hypertensive urgency: Status: Acute (2) Left facial numbness: Status: Acute (3) Arm numbness left: Status: Acute Plan 62-year-old female patient with past medical history significant for uncontrolled hypertension not on antihypertensive medication presented to [facility] with on and off episode of left facial numbness with radiation to left arm with no associated weakness numbness speech or visual impairment . left facial and left upper extremity numbness question etiology question related to elevated blood pressure head and neck CT showed no acute intracranial findings no acute arterial occlusion within the head and neck noted no evidence of acute infection no trauma no injury findings not consistent with Velazquez's palsy or trigeminal neuralgia MRI ordered by ED provider obtain lipid profile follow blood sugars obtain neuro consult hypertensive urgency Uncontrolled hypertension patient with known history of hypertension not on any medication patient treated in the emergency room with 2 dosages of IV labetalol 10 mg and lisinopril blood pressure improved will place patient on Norvasc 5 mg by mouth daily and follow blood pressure Code status full code DVT prophylaxis with Lovenox however patient declined Lovenox since she thinks she has a bleeding disorder which has never been worked up patient admitted under observation Quality Stroke Does the patient have a stroke diagnosis?: No VTE Prior VTE?: No VTE Risk Level:: Medical - moderate - high VTE Device Contraindication: Treatment Not Indicated VTE Drug Contraindication: N/A - Med Ordered
--- NOTE | 2022-04-21 17:03 | PC.NURSE ---
Patient expressed about receiving lovenox, Dr. Logan made aware. Also notified Dr. Logan about patients BP. Instructed to hold both Lovenox and Amlodipine
--- NOTE | 2022-04-22 02:00 | PC.NURSE ---
Assumed care of pt. at 1900. Pt. sitting in bed at that time. Pt. got up to use bathroom, ambulating with steady gait. Pt. reports no pain at this time. 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 No drift noted on either arm. Pt. is alert and oriented with clear speech.
[2022-04-22] MEDS: 0.9 % Sodium Chloride Flush 3 ML SYRINGE IVFLUSH ×2 (02:07→07:57)
[2022-04-22] MEDS: Nicotine 14 MG PATCH.TD24 TRANSDERMA (02:16)
--- NOTE | 2022-04-22 02:17 | PC.NURSE ---
Pt. took off her nicotine patch for her MRI earier today. Tried to reapply but it wouldn't stick, pulled early from her 900am meds as pt. was feeling antsy and uncomfortable with a strong urge for a cigarette.
[2022-04-22 02:57] VITALS: BP 183/82; PULSE 66; RESP 20; TEMP 36.6; O2SAT 95
[2022-04-22 03:20] VITALS: BMI 22.5
[2022-04-22 07:30] LABS: Cholesterol 277 mg/dL; HDL Cholesterol 34 mg/dL; LDL Cholesterol Calculated 171 mg/dl; Triglycerides 360 mg/dL
[2022-04-22 07:35] VITALS: BP 165/78; PULSE 70; RESP 20; TEMP 36.1; O2SAT 96
[2022-04-22] MEDS: amLODIPine Besylate 5 MG TABLET PO (07:55)
[2022-04-22] MEDS: Magnesium Oxide 400 MG TABLET PO (07:55)
[2022-04-22] MEDS: Cholecalciferol (Vitamin D3) 25 MCG TABLET PO (07:56)
--- NOTE | 2022-04-22 08:07 | MHC.CM.PN ---
04/22/22 08:02 - Case Mgmt [id number] : 04/13/1944 Patient Age: 78 CM met with Patient art bedside and addressed ESPINOZA with her, providing her with the original and placing a copy on the chart. Patient lives with and cares for her who has Parkinson's Disease. 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 Home self care is the goal and CM has initiated and will follow for dc planning. Patient has received covid vax x1 and her PCP/DATA ANALYTICS ARCHITECT is Carol Prajapati in [facility]. Initialized on 04/22/22 08:02 - END OF NOTE
--- NOTE | 2022-04-22 08:11 | MHC.CM.PN ---
CM met with Patient at bedside and addressed ESPINOZA with her, providing her with the original and placing a copy on the chart. 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 Home, self care is the goal and CM has initiated and will follow for dc planning. Patient has received Covid vax x1 and her PCP/HYDROPULPER OPERATOR is Carol Prajapati in [facility].
[2022-04-22] MEDS: Atorvastatin Calcium 80 MG TABLET PO (09:45)
[2022-04-22] MEDS: Aspirin 81 MG TAB.CHEW PO (09:45)
--- NOTE | 2022-04-22 10:29 | PC.NURSE ---
Addendum entered by Kimberli Delvalle RN 04/22/22 14:37: pt due to discharge, discharge education given, pt verbalizes understanding with no further questions. Accompanied downstairs by hospital staff. Original Note: Report received from overnight RN. Pt A+Ox4, c/o numbness and tingling in left arm and face but states feels better than yesterday . 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 Call mcnair within reach, safety precautions taken.
--- NOTE | 2022-04-22 10:53 | PM.NEUROCN ---
History of Present Illness Data of Consult Service Date: 04/22/22 Primary Care Provider: None Physician HPI Reason for consult: left-sided numbness 62 years old woman with hypertension not taking medicine for it stating that there was some problem with medications or getting medical consultation came to hospital with left-sided facial and arm weakness. She had on left side of the face 1 day and the next a both face and arm were numb. Numbness came suddenly and had state till now. There was no associated weakness or any other symptom. There was no headache. Her blood pressure has been consistently high. Review of Systems Review of Systems: No recent cold or flu-like PMFSH Past Medical History Medical History (Updated 04/22/22 @ 10:56 by Jr Lee MD) Hypertension Social History Social History Household Members: Spouse Housing: House Do you presently have visiting nurse or other home services: No Patient Tobacco Use Status: Current everyday Tobacco user Tobacco use type: Cigarette service: No Current occupational status: employed Meds Allergies Allergy/AdvReac Type Severity Reaction Status Date / Time Penicillins [PENICILLINS] Allergy Unknown RASH Unverified 04/01/20 14:51 Active Medications: Current Medications Acetaminophen (Acetaminophen 325 Mg Tablet) 650 mg PO Q6H PRN PRN Reason: Pain, Mild (Pain Scale 1-3) Aspirin (Aspirin 81 Mg Tab.Chew) 81 mg PO DAILY [facility] Last Admin: 04/22/22 09:45 Dose: 81 mg Atorvastatin Calcium (Atorvastatin Calcium 80 Mg Tablet) 80 mg PO DAILY [facility] Last Admin: 04/22/22 09:45 Dose: 80 mg Calcium Carbonate (Calcium Carbonate 500 Mg Tablet) 500 mg PO DAILY [facility] Last Admin: 04/22/22 07:55 Dose: 500 mg Enoxaparin Sodium (Enoxaparin Sodium 40 Mg/0.4 Ml Syringe) 40 mg SUBCUT Q24H [facility] Last Admin: 04/21/22 17:03 Dose: Not Given Losartan Potassium (Losartan Potassium 50 Mg Tablet) 100 mg PO DAILY [facility]; Protocol Magnesium Oxide (Magnesium Oxide 400 Mg Tablet) 400 mg PO DAILY [facility] Last Admin: 04/22/22 07:55 Dose: 400 mg Melatonin (Melatonin 3 Mg Tablet) 3 mg PO BEDTIME PRN PRN Reason: Insomnia Nicotine (Nicotine 14 Mg Patch.Td24) 14 mg TRANSDERMA DAILY [facility] Last Admin: 04/22/22 02:16 Dose: 14 mg Ondansetron HCl (Ondansetron Hcl 4 Mg/2 Ml Vial) 4 mg IVPUSH Q8H PRN PRN Reason: Nausea and Vomiting Pharmacy Consult (Consult Rx Perform Med Rec) 1 each MISCELLANE ONCE PRN PRN Reason: Consult order Sodium Chloride (0.9 % Sodium Chloride Flush 3 Ml Syringe) 3 ml IVFLUSH QSHIFT [facility] Last Admin: 04/22/22 07:57 Dose: 3 ml Vitamin D (Cholecalciferol (Vitamin D3) 25 Mcg Tablet) 25 mcg PO DAILY [facility] Last Admin: 04/22/22 07:56 Dose: 25 mcg Home Medications Medication Instructions Recorded Confirmed Last Taken Type aspirin 325 mg tablet 325 mg PO Q4H PRN Pain (Scale 04/21/22 04/21/22 Unknown History Score 1-3) calcium carbonate 600 mg calcium 600 mg PO DAILY 04/21/22 04/21/22 Unknown History (1,500 mg) tablet (Calcium) cholecalciferol (vitamin D3) 25 25 mcg PO DAILY 04/21/22 04/21/22 Unknown History mcg (1,000 unit) capsule (Vitamin D3) magnesium oxide 400 mg PO DAILY 04/21/22 04/21/22 Unknown History turmeric root extract 500 mg 500 mg PO DAILY 04/21/22 04/21/22 Unknown History capsule Physical Exam Vital Signs: Vital Signs: Last Vital Signs Temp 97.0 F 04/22/22 07:35 Pulse 70 04/22/22 07:35 Resp 20 04/22/22 07:35 BP 165/78 H 04/22/22 07:35 Pulse Ox 96 04/22/22 07:35 O2 Del Method 04/22/22 07:35 BMI result Body Mass Index 22.5 Neuro: Other: she was alert and awake with normal spontaneity of speech fluency comprehension and affect. Face was symmetrical. There was no pronator drift. [id number] testing was normal. Deep tendon reflexes were trace to 1+ with flexor plantars. Speech was normal. Results Labs CBC & Chem 7: 04/21/22 12:31 04/21/22 12:31 Labs: Short CBC 04/21/22 Range/Units 12:31 WBC 6.1 (4.8-10.8) X10*3/uL Hgb 13.5 (12.0-16.0) g/dl Hct 40.6 (37.0-47.0) % Plt Count 269 (160-400) X10*3/uL BMP 04/21/22 12:31 Sodium 140 Potassium 4.1 Chloride 107 Carbon Dioxide 24 BUN 17 H Creatinine 0.82 Calcium 9.5 Liver Function 04/21/22 Range/Units 12:31 Total Bilirubin < 0.2 (0.0-1.0) mg/dL Direct Bilirubin < 0.2 (0.0-0.5) mg/dL AST 16 (5-31) U/L ALT 17 (0-31) U/L Alkaline Phosphatase 93 (39-117) U/L Albumin 4.3 (3.5-5.0) g/dL MRI of brain without contrast revealed a small area of restricted diffusion In right lateral thalamus and corresponding signal on FLAIR. CTA did not reveal any vascular lesion. Assessment and Plan (1) Cerebral infarction: Status: Acute 62 years old woman with uncontrolled hypertension has a small right Lateral thalamic acute ischemic infarct resulting in left-sided face and arm numbness. this type of stroke or usually from atherothrombotic disease related to hypertension. She should be educated about control of blood pressure and other vascular risk factors. Mainstay of management is anti-platelet agent such as baby aspirin daily, statin blood pressure control. She should follow up with these things with her primary care physician. Procedures Date of Service Date of Service: 04/22/22
[2022-04-22 11:03] VITALS: BP 168/73; PULSE 65; O2SAT 92
[2022-04-22 11:27] VITALS: BP 168/73; PULSE 65; RESP 18; TEMP 35.6; O2SAT 92
--- NOTE | 2022-04-22 11:48 | PM.DS ---
DS: Providers Provider Date of Service: 04/22/22 Date of admission: 04/21/22 16:17 Primary care physician: None Physician Consults: 04/21/22 16:17 Consult to Neurology Routine Consulting Provider: [facility] Reason for consultation: left facial and arm numbness Has provider been notified: No DS: Diagnosis Discharge Diagnosis (1) Cerebral infarction: Status: Acute (2) Uncontrolled hypertension: Status: Acute (3) Dyslipidemia: Status: Acute (4) Tobacco abuse: Status: Acute DS: Summary Hospital Course Hospital Course: from admission H+P by hospitalist Shukri Logan MD, 04/21/22: 62-year-old female patient with past medical history significant for hypertension not on medication presented to [facility] on 04/20/2022 after she developed a brief episode of left facial numbness that lasted for 10-15 minutes and resolved by itself, and hour later patient developed left facial numbness with radiation to left arm she took a dose of aspirin and came to the emergency room she had a CT head and neck done that showed no abnormality patient was advised for admission however she refused since she had to take care of her disabled part in a but at 21:00 last night symptoms returned with numbness of face radiating to left arm with no associated symptoms of speech impairment no visual symptoms no motor weakness the symptoms became worse she felt like Novocain so she woke up with the symptoms at 02:00 and return to the emergency room patient's symptoms are persistent without any change in intensity, she told emergency room provider that she had a bandlike headache and left eye burning at present she has no symptoms she denies associated fever chills she denies new medication she denies any trauma injury denies prior similar symptoms has had multiple to hold and she feels similar numbness like a Novocain shot, patient also noted to have significantly elevated blood pressure 200/110 in the emergency room treated with? 10 mg of iv labetalol x2? and lisinopril with improvement in blood pressure to 177/82. NIHSS was 1. 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 Neurology was consulted. Secondary prevention with aspirin, high-intensity statin, antihypertensive therapy, and tobacco cessation was counseled and instituted. She needs to establish primary care as soon as possible. For blood pressure control, she was started on losartan 100 mg/d [as she has a history of cough with MAXIMINO inhibitors, edema with amlodipine, and hypokalemia with diuretics] and should repeat BMP measurement in 1 week. She had marked dyslipidemia and was started on atorvastatin 80 mg daily. Time spent discussing smoking cessation with patient: 3 to 10 minutes Time Spent with Patient Time attestation: Total time spent providing and/or coordinating discharge services: 35 Discharge coordination time: Greater than 30 minutes Quality: Safe Use of Opioids Does Pt have an Active Cancer Diagnosis on the Problem List?: No Quality: Stroke Does the patient have a stroke diagnosis?: Yes Reason for No Anti-thrombotic at DC: N/A - Med Ordered Reason for No Anticoagulant at DC: Drug treatment not indicated Reason Not Initiating IV-Tpa: Drug treatment not indicated Reason for No Anti-thrombotic by Day Two: N/A - Med Ordered Reason for No Statin at DC: N/A - Med Ordered Physical Exam Vital Signs: Vital Signs: Last Vital Signs Temp 96.0 F L 04/22/22 11:27 Pulse 65 04/22/22 11:27 Resp 18 04/22/22 11:27 BP 168/73 H 04/22/22 11:27 Pulse Ox 92 04/22/22 11:27 O2 Del Method 04/22/22 11:27 BMI result Body Mass Index 22.5 Gen: in no acute distress HEENT: sclera anicteric, moist mucus membranes Neck: supple Lungs: clear to auscultation bilaterally Heart: regular rate and rhythm, no murmurs Abd: soft, non-tender, non-distended Ext: no edema Skin: warm/well-perfused Neuro: alert and oriented x3, no pronator drift, no facial droop, mildly decreased sensation to light touch L face and L arm Psych: appropriate affect DS: Data Data Completed and Pending Completed studies during hospitalization [Text1]: Laboratory Results WBC 6.1 X10*3/uL (4.8-10.8) 04/21/22 12:31 RBC 4.66 X10*6/uL (4.20-5.50) 04/21/22 12:31 Hgb 13.5 g/dl (12.0-16.0) 04/21/22 12:31 Hct 40.6 % (37.0-47.0) 04/21/22 12:31 MCV 87.1 fL (80.0-98.0) 04/21/22 12: MCH 29.0 pg (27.0-33.0) 04/21/22 12: MCHC 33.3 g/dl (31.0-35.0) 04/21/22 12: RDW 13.1 % (11.0-16.0) 04/21/22 12:31 Plt Count 269 X10*3/uL (160-400) 04/21/22 12:31 MPV 9.3 fL (9.4-12.3) L 04/21/22 12: Immature Gran % (Auto) 0.5 % (0.0-0.4) H 04/21/22 12: Neut % (Auto) 62.5 % (45-73) 04/21/22 12: Lymph % (Auto) 26.3 % (20-40) 04/21/22 12: [place] % (Auto) 7.0 % (2-11) 04/21/22 12: Eos % (Auto) 2.9 % (0-4) 04/21/22 12:31 Baso % (Auto) 0.8 % (0-2) 04/21/22 12: Lymph # (Auto) 1.6 X10*3/uL (1.2-4.9) 04/21/22 12: [place] # (Auto) 0.4 X10*3/uL (0.1-1.2) 04/21/22 12: Eos # (Auto) 0.2 X10*3/uL (0.0-0.4) 04/21/22 12: Baso # (Auto) 0.1 X10*3/uL (0.0-0.2) 04/21/22 12: Abs Immat Gran (auto) 0.03 X10*3/uL (0.00-0.03) 04/21/22 12: Absolute Neuts (auto) 3.8 x10*3/uL (2.0-8.3) 04/21/22 12: Absolute Nucleated RBC 0.000 X10*3/uL (0.0-0.012) 04/21/22 12: Nucleated RBC % (auto) 0.0 /100WBC (0.0-0.2) 04/21/22 12:31 PT 10.1 SEC (10.0-13.1) 04/21/22 12:31 INR 0.9 (0.9-1.1) 04/21/22 12:31 APTT 30.4 SEC (26.0-36.4) 04/21/22 12:31 Sodium 140 mmol/L (135-145) 04/21/22 12:31 Potassium 4.1 mmol/L (3.3-5.1) 04/21/22 12:31 Chloride 107 mmol/L (96-108) 04/21/22 12:31 Carbon Dioxide 24 mmol/L (22-29) 04/21/22 12:31 Anion Gap 13 (12-20) 04/21/22 12:31 BUN 17 mg/dL (9-16) H 04/21/22 12:31 Creatinine 0.82 mg/dL (0.5-1.4) 04/21/22 12:31 Estim Creat Clear Calc 64.8 04/21/22 12:31 Estimated GFR > 60 04/21/22 12:31 Random Glucose 111 mg/dL (60-115) 04/21/22 12:31 Calcium 9.5 mg/dL (8.4-10.2) 04/21/22 12:31 Magnesium 1.9 mg/dL (1.6-2.6) 04/21/22 12:31 Total Bilirubin < 0.2 mg/dL (0.0-1.0) 04/21/22 12:31 Direct Bilirubin < 0.2 mg/dL (0.0-0.5) 04/21/22 12:31 AST 16 U/L (5-31) 04/21/22 12:31 ALT 17 U/L (0-31) 04/21/22 12:31 Alkaline Phosphatase 93 U/L (39-117) 04/21/22 12:31 Total Protein 6.8 g/dL (6.5-8.0) 04/21/22 12:31 Albumin 4.3 g/dL (3.5-5.0) 04/21/22 12:31 Triglycerides 360 mg/dL 04/22/22 06:20 Cholesterol 277 mg/dL 04/22/22 06:20 LDL Cholesterol, Calc 171 mg/dl 04/22/22 06:20 HDL Cholesterol 34 mg/dL 04/22/22 06:20 Urine Opiates Screen Not Detected (Not Detect) 04/21/22 13:03 Urine Fentanyl Screen Not Detected (Not Detect) 04/21/22 13:03 Ur Barbiturates Screen Not Detected (Not Detect) 04/21/22 13:03 Ur Phencyclidine Scrn Not Detected (Not Detect) 04/21/22 13:03 Ur Amphetamines Screen Not Detected (Not Detect) 04/21/22 13:03 U Benzodiazepines Scrn Not Detected (Not Detect) 04/21/22 13:03 Urine Cocaine Screen Not Detected (Not Detect) 04/21/22 13:03 U Marijuana (THC) Screen Not Detected (Not Detect) 04/21/22 13:03 COVID-19 (MANINDER) Negative (Negative) 04/21/22 12:31 COVID-19 Clin Com See Note 04/21/22 12:31 Impressions Brain MRI 04/21/22 18:02 IMPRESSION: 1. Small acute infarct of the right thalamus. 2. No additional acute intracranial abnormalities. 3. Mild underlying microangiopathy. Discharge Plan Discharge Patient Disposition: Home, Self-Care Discharge Diagnosis: sensory stroke, dyslipidemia, uncontrolled hypertension, tobacco abuse Referrals: [facility] [Provider Group] - 1 Week Physician,Gloria [Primary Care Provider] - 1 Week Discharge Medications: New nicotine 14 mg/24 hr Patch 24 Hour 14 mg transdermal DAILY Qty: 28 2RF atorvastatin 80 mg Tablet 80 mg PO DAILY Qty: 30 2RF aspirin 81 mg Tablet,Chewable 81 mg PO DAILY Qty: 30 2RF nicotine (polacrilex) 2 mg gum 2 mg buccal Q2H Qty: 120 5RF losartan 100 mg tablet 100 mg PO DAILY Qty: 30 2RF Continued calcium carbonate [Calcium 600] 600 mg calcium (1,500 mg) Tablet 600 mg PO DAILY cholecalciferol (vitamin D3) [Vitamin D3] 25 mcg (1,000 unit) Capsule 25 mcg PO DAILY turmeric root extract 500 mg Capsule 500 mg PO DAILY magnesium oxide 400 mg magnesium Tablet 400 mg PO DAILY Discontinued aspirin 325 mg Tablet 325 mg PO Q4H PRN (Reason: Pain (Scale Score 1-3)) Rx Instructions: while awake Discharge Orders: Discharge Order (Routine); Ordered 04/22/22 Ordered By: Dima Bhakta Diet: Low salt diet Activity on Discharge: As tolerated Stand Alone Forms: Patient Portal Discharge page Other Ambulatory Orders: Basic Metabolic Panel (Routine) Timeframe: 1 Week Facility: [facility] - Location: Laboratory Ordered By: Dima Bhakta Care Plan Goals: prevention of strokes Health Concerns: sensory stroke, dyslipidemia, uncontrolled hypertension, tobacco abuse Plan of Treatment: take aspirin 81 mg daily, atorvastatin 80 mg daily, and losartan 100 mg daily check your BP at home; goal <140/90 establish primary care as soon as possible; outpatient echocardiogram recheck labs [basic metabolic panel] in 1 week stop smoking; use nicotine patch plus gum to help yourself quit Please follow up with your primary care doctor within 1 week. Return to the hospital if you experience recurrent or worsening symptoms. Assessment: See Discharge Summary. Patient Instructions: Self Care Measures After a Stroke (DC), Mediterranean Diet (DC) Discharge Date/Time: 04/22/22 14:38
--- NOTE | 2022-04-22 14:32 | MHC.CM.PN ---
Patient has been medically cleared for dc to home today, self care.
== END 2022-04-22 14:38 | disposition home or self-care (01) | DRG 66 ==
LOC: HO.ED 14:32 → HO.IMC 04-22 07:08 → HO.EDOVER 04-24 11:25
PROVIDERS: Physician Assistant; Admitting Provider Hospitalist; Emergency Provider Emergency Medicine Emergency Medical Services; Visit Provider Family Medicine
DX: I63.89 Other cerebral infarction (principal); I16.0 Hypertensive urgency; I10 Essential (primary) hypertension; F17.210 Nicotine dependence, cigarettes, uncomplicated; Z71.6 Tobacco abuse counseling; Z20.822 Contact with and (suspected) exposure to COVID-19; Z91.14 Patient's other noncompliance with medication regimen; Z88.0 Allergy status to penicillin; Z79.82 Long term (current) use of aspirin; Z79.899 Other long term (current) drug therapy
CPT/HCPCS: 36415; 70551; 80048; 80061; 80076; 80307; 83735; 85025; 85610; 85730; 87635; 93005; 96374; 97161; 99219; 99284; 99285

== ENCOUNTER 2022-07-28 16:08 | Observation (INO) | payer MEDICARE, MEDICAID, SELFPAY ==
--- NOTE | ~2022-07-28 | CT_ITS ---
EXAMINATION: CT HEAD WITHOUT CONTRAST (STROKE PROTOCOL) CLINICAL INFORMATION: Stroke protocol. COMPARISON: CTA dated 04/20/2022, head MRI dated 04/21/2022 TECHNIQUE: Contiguous axial imaging was performed from the skull base to vertex without intravenous administration of contrast. This CT examination was performed using dose optimization techniques as appropriate, variously including the following: *Automated exposure control *Adjustment of mA and/or kV according to patient size (this includes techniques or standardized protocols for targeted exams where dose is matched to indication/reason for exam; i.e. extremities or head) *Use of iterative reconstruction technique DLP: 533 mGy-cm FINDINGS: The cortical sulci are normal. The lateral ventricles are symmetrical. The third and fourth ventricles are in their normal midline position. The basilar and prepontine cisterns are unremarkable. Incidental empty sella without significant change. There is no acute intra or extracerebral abnormality. There is no mass effect or midline shift. Sections through the bony calvarium are unremarkable. The paranasal sinuses are clear. The bony orbits and orbital contents are unremarkable. Mild anterior nasal septal deviation, apex the left is seen. CT/CT head for stroke IMPRESSION: No acute intracranial pathology.
--- NOTE | ~2022-07-28 | CT_ITS ---
EXAMINATION: CT ANGIOGRAM HEAD CT ANGIOGRAM NECK CLINICAL INFORMATION: Reason for Exam sudden onset VLILELA COMPARISON: Same day noncontrast head CT. TECHNIQUE: Initial noncontrast datacap developer imaging of the head and neck was performed. Noncontrast head CT was also performed. Test bolus sequences followed by intravenous administration 70 mL of Omnipaque 350. Helical imaging was performed in the axial plane from the aortic arch to the skull vertex. Delayed postcontrast imaging of the head was also performed. The data was processed at the cat scan technologist's workstation for generation of MIP sequences. Angled MIPs and volume rendered reformatted images were also generated at an offline 3D workstation. Stenoses are assessed in accordance with NASCET criteria unless otherwise indicated. DLP: 1363 mGy-cm This CT examination was performed using dose optimization techniques as appropriate, variously including the following: *Automated exposure control. *Adjustment of mA and/or kV according to patient size (this includes techniques or standardized protocols for targeted exams where dose is matched to indication/reason for exam; i.e. extremities or head). *Use of iterative reconstruction technique. FINDINGS: CT Head: There is no evidence of acute intracranial hemorrhage or edematous territorial infarction. Small chronic lacunar infarct in the right thalamus. [place]-white matter differentiation is preserved. The ventricles are normal in size and configuration. No evidence for obstructive hydrocephalus. No abnormal mass effect or midline shift. No extra-axial fluid collections. No pathologic intra-axial enhancement or regional oligemia. No acute soft tissue or osseous abnormalities. Mild right posterior ethmoid sinus mucosal thickening. CT Neck: The thyroid gland and remaining cervical soft tissues are within normal limits. Moderate multilevel cervical spondylosis. CT Upper Chest: Mild biapical pulmonary scarring. The visualized lung apices and upper mediastinum are within normal limits. Neck CTA: Aortic Arch: Normal contour and caliber. Classic 3 vessel branching pattern of the aortic arch. Great Vessel Origins: No significant stenosis of the branch origins. Right Common Carotid Artery: No focal stenosis or occlusion. Cervical Right Internal Carotid Artery: Mild calcific atherosclerotic disease of the carotid bulb and proximal internal carotid artery without flow-limiting stenosis. Left Common Carotid Artery: No focal stenosis or occlusion. Cervical Left Internal Carotid Artery: Normal opacification without focal stenosis or occlusion. Cervical Right Vertebral Artery: No focal stenosis or occlusion. Cervical Left Vertebral Artery: No focal stenosis or occlusion. Brain CTA: Intracranial Internal Carotid Arteries: No focal stenosis or occlusion. Right Anterior Cerebral Artery: Normal A1 segment. Normal opacification of the distal CIRILO segments. Left Anterior Cerebral Artery: Normal A1 segment. Normal opacification of the distal CIRILO segments. Anterior Communicating Artery: Normal. Right Middle Cerebral Artery: Normal M1 segment of the MCA without focal stenosis or occlusion. Normal arborization of the distal segments. Left Middle Cerebral Artery: Normal M1 segment of the MCA without focal stenosis or occlusion. Normal arborization of the distal segments. Right Vertebral Artery: Normal V4 segment. Left Vertebral Artery: Normal V4 segment. Basilar Artery: Normal without focal stenosis or occlusion. Normal appearance of the proximal superior cerebellar arteries. Right Posterior Cerebral Artery: Normal P1 segment. Normal opacification of the distal SHIP OFFICER segments. Left Posterior Cerebral Artery: The P1 segment is diminutive. origin of the SHIP OFFICER with robust opacification of the posterior communicating artery. Normal opacification of the distal SHIP OFFICER segments. Normal opacification of the superior sagittal, straight, transverse, and sigmoid sinuses. CT/CT angio head neck stroke IMPRESSION: No arterial high grade stenosis or large vessel occlusion in the head or neck. No intracranial aneurysm is identified.
--- NOTE | ~2022-07-28 | MR_ITS ---
EXAMINATION: MR BRAIN WITHOUT CONTRAST CLINICAL INFORMATION: Right eye blurry vision, facial numbness COMPARISON: CT head without contrast 07/28/2022, MRI brain without contrast 04/21/2022 TECHNIQUE: Multiplanar multisequence MR imaging of the brain was obtained without intravenous contrast. FINDINGS: There is no acute infarct on diffusion-weighted imaging. There is no intracranial hemorrhage on iron-sensitive imaging. No extra-axial collection or mass effect/herniation. Small chronic lacunar infarct in the right thalamus. Otherwise normal parenchymal signal characteristics. No hydrocephalus. The ventricles are normal in morphology and size. The major flow voids at the skull base are preserved. Partially empty sella The cerebellar tonsils are normally positioned. The craniocervical junction is normal. Marrow signal is within normal limits. The visualized soft tissues are without significant abnormality. Mild ethmoid sinus mucosal thickening. MR/MR head/brain wo con IMPRESSION: No acute intracranial abnormality.
[2022-07-28 16:10] VITALS: BP 197/102; PULSE 110; RESP 18; TEMP 36.3; O2SAT 99; BMI 25.0
--- NOTE | 2022-07-28 16:10 | ED.DIZZY ---
HPI - Dizziness General Chief Complaint: Stroke <Anjana Kelley NP - Last Filed: 07/28/22 16:16> Stated Complaint: stroke alert? <Anjana Kelley NP - Last Filed: 07/28/22 16:16> Time Seen by Provider: 07/28/22 16:17 <Anjana Kelley NP - Last Filed: 07/28/22 16:16> Source: patient <KOKI Angulo - Last Filed: 07/28/22 18:46> Mode of arrival: ambulatory <KOKI Angulo - Last Filed: 07/28/22 18:46> Limitations: no limitations <KOKI Angulo - Last Filed: 07/28/22 18:46> History of Present Illness HPI Narrative: This is a 62-year-old female history of dyslipidemia, hypertension, CVA on aspirin presenting to the emergency department with complaints of severe sudden onset right-sided headache with right-sided blurred vision and numbness to the right side of the face. Patient tells me this started about 2 hours ago however, this morning patient tells me that since this morning she was not feeling right, she tells me that at approximately 08:00 when she 1st woke up she felt dizzy, described as disequilibrium, tells me this lasted for a few hours, resolved, patient tells me she went about her day however still not feeling right, she tells me it was not until about 2 hours ago until she got a severe headache, was advised to come in by her primary care provider. Patient denies fevers, chills, chest pain, shortness of breath, nausea, vomiting. On arrival NIH stroke scale 2 <KOKI Angulo - Last Filed: 07/28/22 18:46> Related Data Home Medications: Home Medications Medication Instructions Recorded Confirmed calcium carbonate 600 mg calcium 600 mg PO DAILY 04/21/22 04/21/22 (1,500 mg) tablet (Calcium) cholecalciferol (vitamin D3) 25 25 mcg PO DAILY 04/21/22 04/21/22 mcg (1,000 unit) capsule (Vitamin D3) magnesium oxide 400 mg PO DAILY 04/21/22 04/21/22 turmeric root extract 500 mg 500 mg PO DAILY 04/21/22 04/21/22 capsule Previous Rx's Medication Instructions Recorded aspirin 81 mg chewable tablet 81 mg PO DAILY #30 tabs 04/22/22 atorvastatin 80 mg tablet 80 mg PO DAILY #30 tabs 04/22/22 losartan 100 mg tablet 100 mg PO DAILY #30 tabs 04/22/22 nicotine (polacrilex) 2 mg gum 2 mg buccal Q2H #120 ea 04/22/22 nicotine 14 mg/24 hr daily 14 mg transdermal DAILY #28 ea 04/22/22 transdermal patch <Anjana Kelley NP - Last Filed: 07/28/22 16:16> Allergies/Adverse Reactions: Allergies Allergy/AdvReac Type Severity Reaction Status Date / Time Penicillins [PENICILLINS] Allergy Unknown RASH Unverified 04/01/20 14:51 <Anjana Kelley NP - Last Filed: 07/28/22 16:16> Review of Systems Review of Systems: Constitutional : No Weight loss, No Fever, No Chills, No Fatigue, No Malaise ENT/Mouth : No sore throat, No Rhinorrhea Eyes: No Eye Pain, No Swelling, No Redness Cardiovascular : No Chest Pain, No SOB, No Dyspnea on Exertion, No Orthopnea, No Edema, No Palpitations Respiratory : No Cough, No Sputum, No Wheezing Gastrointestinal : No Nausea, No Vomiting, No Diarrhea, No Constipation, No abdominal Pain, No Hematochezia, No Melena Genitourinary : No Dysuria, No Urinary Frequency, No Hematuria, Musculoskeletal : No joint pain, No Myalgias, No Joint Swelling Skin : No Skin Lesions, No rash Neuro : No Weakness, No Numbness, + Dizziness, + Headache, + numbness Psych : No Anxiety/Panic, No Depression All other systems reviewed and are negative <KOKI Angulo - Last Filed: 07/28/22 18:46> Yes all other systems are reviewed and are negative <KOKI Angulo Last Filed: 07/28/22 18:46> [facility]LY [facility] Past Medical History Attestation statement: The following information was validated with the patient. <KOKI Angulo Last Filed: 07/28/22 18:46> Source: old records reviewed and nursing notes reviewed <KOKI Angulo - Last Filed: 07/28/22 18:46> Medical History: Medical History Hypertension <Anjana Kelley NP - Last Filed: 07/28/22 16:16> Social History Social History: Social History Household Members: Spouse Housing: House Do you presently have visiting nurse or other home services: No Patient Tobacco Use Status: Current everyday Tobacco user Tobacco use type: Cigarette Advance Directives: No Advance Directives Information Provided: Yes service: No Current occupational status: employed <Anjana Kelley NP - Last Filed: 07/28/22 16:16> Physical Exam Vital Signs: Vital Signs: Last Vital Signs Temp 97.4 F 07/28/22 16:10 Pulse 110 H 07/28/22 16:10 Resp 18 07/28/22 16:10 BP 197/102 H 07/28/22 16:10 Pulse Ox 99 07/28/22 16:10 O2 Del Method 07/28/22 16:10 BMI result Body Mass Index 25.0 <Anjana Kelley NP - Last Filed: 07/28/22 16:16> Vital Signs: Last Vital Signs Temp 97.4 F 07/28/22 16:10 Pulse 110 H 07/28/22 16:10 Resp 18 07/28/22 16:10 BP 197/102 H 07/28/22 16:10 Pulse Ox 99 07/28/22 16:10 O2 Del Method 07/28/22 16:10 BMI result Body Mass Index 25.0 HTN noted as well as tachycardia 110 <KOKI Angulo - Last Filed: 07/28/22 18:46> Appearance: Alert.? Oriented X3.? No acute distress.? Head: Normocephalic, atraumatic, no step-offs or deformities. Decreased sensation to right side of face when compared to the right. Eyes: Pupils equal, round and reactive to light.? CVS: Normal heart rate and rhythm.? Pulses normal.? Respiratory: No respiratory distress.? Breath sounds normal.? Abdomen: Soft and nontender.? Skin: Skin warm and dry.? Normal skin color.? Normal skin turgor.? Extremities: No lower extremity edema.? No calf ttp. 5/5 strength to bilateral upper and lower extremities Back: No midline tenderness, no C-spine tenderness, full range of motion, no CVA tenderness bilaterally Neuro: Oriented X 3.? No motor deficit.? No sensory deficit. CN 2-12 intact. Normal finger to nose, heel to wilks, steady tandem gait normal coordination NIH stroke scale of 2 <KOKI Angulo - Last Filed: 07/28/22 18:46> Course Course Course Narrative: This is a rapid medical exam. Deferred additional HPI, ROS, PE to primary provider. 62 yo female with history of HTN, HLD, CVA here with complaints of sudden onset headache 2pm with now complaints of head pressure/facial numbness bilaterally and right eye feels blurry. This morning woke with dizziness which she has had intermittent since. No complaints of symptoms in extremities or speech change. Facial strength with no droop noted in triage. Will be brought direct to ER bed. <Anjana Kelley NP - Last Filed: 07/28/22 16:16> Reevaluation(s) Reevaluation #1: I did order an MRI on this patient due to staffing issues there is no elevator service technician patient will be admitted for possible TIA. <KOKI Angulo - Last Filed: 07/28/22 18:46> Time: 18:08 <KOKI Angulo - Last Filed: 07/28/22 18:46> Reevaluation #2: CBC within normal limits. Chemistry with no acute electrolyte abnormalities requiring intervention. Troponin negative, EKG nonischemic. Patient's symptoms may be secondary to uncontrolled hypertension upon chart review it appears as though this elevated blood pressure reading is around patient's baseline, will give 2.5 of lopressor. Plan is to admit patient, discussed this case with Dr. Aquino. <KOKI Angulo - Last Filed: 07/28/22 18:46> Time: 18:43 <KOKI Angulo - Last Filed: 07/28/22 18:46> Reevaluation #3: Patient admitted to the hospital at this time <KOKI Angulo - Last Filed: 07/28/22 18:46> Medications Administered Discontinued Medications Generic Name Dose Route Start Last Admin Trade Name Freq PRN Reason Stop Dose Admin Iohexol 100 ml 07/28/22 16:35 07/28/22 16:37 Iohexol 350 Mg/Ml 100 Ml Infus..Btl IV 07/28/22 16:36 100 ml ONCE ONE Administration Metoprolol Tartrate 2.5 mg 07/28/22 18:18 07/28/22 18:27 Metoprolol Tartrate 5 Mg/5 Ml Vial IVPUSH 07/28/22 18:19 2.5 mg ONCE ONE Administration Nicotine 14 mg 07/28/22 18:01 07/28/22 18:27 Nicotine 14 Mg Patch.Td24 TRANSDERMA 07/28/22 18:02 14 mg ONCE ONE Administration <Anjana Kelley NP - Last Filed: 07/28/22 16:16> Medications Administered Discontinued Medications Generic Name Dose Route Start Last Admin Trade Name Freq PRN Reason Stop Dose Admin Iohexol 100 ml 07/28/22 16:35 07/28/22 16:37 Iohexol 350 Mg/Ml 100 Ml Infus..Btl IV 07/28/22 16:36 100 ml ONCE ONE Administration Metoprolol Tartrate 2.5 mg 07/28/22 18:18 07/28/22 18:27 Metoprolol Tartrate 5 Mg/5 Ml Vial IVPUSH 07/28/22 18:19 2.5 mg ONCE ONE Administration Nicotine 14 mg 07/28/22 18:01 07/28/22 18:27 Nicotine 14 Mg Patch.Td24 TRANSDERMA 07/28/22 18:02 14 mg ONCE ONE Administration <KOKI Angulo - Last Filed: 07/28/22 18:46> Medical Decision Making Medical Decision Making [facility] Narrative: 1632 62-year-old female presents with severe sudden-onset right-sided headache with right-sided blurred vision x2 hours however patient reports associated dizziness, malaise since this morning at 08:00, patient tells me she just has not been feeling right since then. Physical exam with decreased sensation to the right side of the face. Extraocular movements intact and pain-free. NIH stroke scale of 2. Cerebellar function intact Due to patient's history of TIAs, CVA will obtain stroke head CT, CTA head and neck. Will rule out stroke, large vessel occlusion, intracranial hemorrhage, electrolyte abnormalities. Other differentials include complex migraine versus hypertensive urgency/emergency. Plan images, labs <KOKI Angulo - Last Filed: 07/28/22 18:46> Differential Diagnosis Differential Diagnoses: The differential diagnosis associated with the presentation includes <KOKI Angulo - Last Filed: 07/28/22 18:46> Will rule out stroke, large vessel occlusion, intracranial hemorrhage, electrolyte abnormalities. Other differentials include complex migraine versus hypertensive urgency/emergency.. <KOKI Angulo - Last Filed: 07/28/22 18:46> Admission/Observation Consideration of admission/observation: Escalation of care including admission/observation considered <KOKI Angulo - Last Filed: 07/28/22 18:46> Lab Data Result Diagrams: 07/28/22 16:20 07/28/22 16:20 <Anjana Kelley NP - Last Filed: 07/28/22 16:16> Labs: Lab Results 07/28/22 07/28/22 07/28/22 Range/Units 16:20 16:20 16:20 WBC 9.3 (4.8-10.8) X10*3/uL RBC 4.44 (4.20-5.50) X10*6/uL Hgb 13.3 (12.0-16.0) g/dl Hct 39.6 (37.0-47.0) % MCV 89.2 (80.0-98.0) fL MCH 30.0 (27.0-33.0) pg MCHC 33.6 (31.0-35.0) g/dl RDW 13.0 (11.0-16.0) % Plt Count 286 (160-400) X10*3/uL MPV 9.2 L (9.4-12.3) fL Immature Gran % (Auto) 0.5 H (0.0-0.4) % Neut % (Auto) 68.2 (45-73) % Lymph % (Auto) 21.1 (20-40) % [place] % (Auto) 6.9 (2-11) % Eos % (Auto) 2.5 (0-4) % Baso % (Auto) 0.8 (0-2) % Lymph # (Auto) 2.0 (1.2-4.9) X10*3/uL [place] # (Auto) 0.6 (0.1-1.2) X10*3/uL Eos # (Auto) 0.2 (0.0-0.4) X10*3/uL Baso # (Auto) 0.1 (0.0-0.2) X10*3/uL Abs Immat Gran (auto) 0.05 H (0.00-0.03) X10*3/uL Absolute Neuts (auto) 6.3 (2.0-8.3) x10*3/uL Absolute Nucleated RBC 0.000 (0.0-0.012) X10*3/uL Nucleated RBC % (auto) 0.0 (0.0-0.2) /100WBC PT 10.7 (10.0-13.1) SEC INR 0.9 (0.9-1.1) Sodium 140 (135-145) mmol/L Potassium 3.9 (3.3-5.1) mmol/L Chloride 104 (96-108) mmol/L Carbon Dioxide 24 (22-29) mmol/L Anion Gap 16 (12-20) BUN 18 H (9-16) mg/dL Creatinine 0.86 (0.5-1.4) mg/dL Estim Creat Clear Calc 61.8 Estimated GFR > 60 Random Glucose 106 (60-115) mg/dL Calcium 9.8 (8.4-10.2) mg/dL Magnesium 1.8 (1.6-2.6) mg/dL Total Bilirubin 0.4 (0.0-1.0) mg/dL Direct Bilirubin < 0.2 (0.0-0.5) mg/dL AST 21 (5-31) U/L ALT 27 (0-31) U/L Alkaline Phosphatase 103 (39-117) U/L Troponin I High Sens (<3.5-17.0) ng/L Total Protein 7.2 (6.5-8.0) g/dL Albumin 4.5 (3.5-5.0) g/dL COVID-19 (MANINDER) (Negative) COVID-19 Clin Com 07/28/22 07/28/22 Range/Units 16:20 17:07 WBC (4.8-10.8) X10*3/uL RBC (4.20-5.50) X10*6/uL Hgb (12.0-16.0) g/dl Hct (37.0-47.0) % MCV (80.0-98.0) fL MCH (27.0-33.0) pg MCHC (31.0-35.0) g/dl RDW (11.0-16.0) % Plt Count (160-400) X10*3/uL MPV (9.4-12.3) fL Immature Gran % (Auto) (0.0-0.4) % Neut % (Auto) (45-73) % Lymph % (Auto) (20-40) % [place] % (Auto) (2-11) % Eos % (Auto) (0-4) % Baso % (Auto) (0-2) % Lymph # (Auto) (1.2-4.9) X10*3/uL [place] # (Auto) (0.1-1.2) X10*3/uL Eos # (Auto) (0.0-0.4) X10*3/uL Baso # (Auto) (0.0-0.2) X10*3/uL Abs Immat Gran (auto) (0.00-0.03) X10*3/uL Absolute Neuts (auto) (2.0-8.3) x10*3/uL Absolute Nucleated RBC (0.0-0.012) X10*3/uL Nucleated RBC % (auto) (0.0-0.2) /100WBC PT (10.0-13.1) SEC INR (0.9-1.1) Sodium (135-145) mmol/L Potassium (3.3-5.1) mmol/L Chloride (96-108) mmol/L Carbon Dioxide (22-29) mmol/L Anion Gap (12-20) BUN (9-16) mg/dL Creatinine (0.5-1.4) mg/dL Estim Creat Clear Calc Estimated GFR Random Glucose (60-115) mg/dL Calcium (8.4-10.2) mg/dL Magnesium (1.6-2.6) mg/dL Total Bilirubin (0.0-1.0) mg/dL Direct Bilirubin (0.0-0.5) mg/dL AST (5-31) U/L ALT (0-31) U/L Alkaline Phosphatase (39-117) U/L Troponin I High Sens < 3.5 (<3.5-17.0) ng/L Total Protein (6.5-8.0) g/dL Albumin (3.5-5.0) g/dL COVID-19 (MANINDER) Negative (Negative) COVID-19 Clin Com See Note <Anjana Kelley NP - Last Filed: 07/28/22 16:16> Lab Results 07/28/22 07/28/22 07/28/22 Range/Units 16:20 16:20 16:20 WBC 9.3 (4.8-10.8) X10*3/uL RBC 4.44 (4.20-5.50) X10*6/uL Hgb 13.3 (12.0-16.0) g/dl Hct 39.6 (37.0-47.0) % MCV 89.2 (80.0-98.0) fL MCH 30.0 (27.0-33.0) pg MCHC 33.6 (31.0-35.0) g/dl RDW 13.0 (11.0-16.0) % Plt Count 286 (160-400) X10*3/uL MPV 9.2 L (9.4-12.3) fL Immature Gran % (Auto) 0.5 H (0.0-0.4) % Neut % (Auto) 68.2 (45-73) % Lymph % (Auto) 21.1 (20-40) % [place] % (Auto) 6.9 (2-11) % Eos % (Auto) 2.5 (0-4) % Baso % (Auto) 0.8 (0-2) % Lymph # (Auto) 2.0 (1.2-4.9) X10*3/uL [place] # (Auto) 0.6 (0.1-1.2) X10*3/uL Eos # (Auto) 0.2 (0.0-0.4) X10*3/uL Baso # (Auto) 0.1 (0.0-0.2) X10*3/uL Abs Immat Gran (auto) 0.05 H (0.00-0.03) X10*3/uL Absolute Neuts (auto) 6.3 (2.0-8.3) x10*3/uL Absolute Nucleated RBC 0.000 (0.0-0.012) X10*3/uL Nucleated RBC % (auto) 0.0 (0.0-0.2) /100WBC PT 10.7 (10.0-13.1) SEC INR 0.9 (0.9-1.1) Sodium 140 (135-145) mmol/L Potassium 3.9 (3.3-5.1) mmol/L Chloride 104 (96-108) mmol/L Carbon Dioxide 24 (22-29) mmol/L Anion Gap 16 (12-20) BUN 18 H (9-16) mg/dL Creatinine 0.86 (0.5-1.4) mg/dL Estim Creat Clear Calc 61.8 Estimated GFR > 60 Random Glucose 106 (60-115) mg/dL Calcium 9.8 (8.4-10.2) mg/dL Magnesium 1.8 (1.6-2.6) mg/dL Total Bilirubin 0.4 (0.0-1.0) mg/dL Direct Bilirubin < 0.2 (0.0-0.5) mg/dL AST 21 (5-31) U/L ALT 27 (0-31) U/L Alkaline Phosphatase 103 (39-117) U/L Troponin I High Sens (<3.5-17.0) ng/L Total Protein 7.2 (6.5-8.0) g/dL Albumin 4.5 (3.5-5.0) g/dL COVID-19 (MANINDER) (Negative) COVID-19 Clin Com 07/28/22 07/28/22 Range/Units 16:20 17:07 WBC (4.8-10.8) X10*3/uL RBC (4.20-5.50) X10*6/uL Hgb (12.0-16.0) g/dl Hct (37.0-47.0) % MCV (80.0-98.0) fL MCH (27.0-33.0) pg MCHC (31.0-35.0) g/dl RDW (11.0-16.0) % Plt Count (160-400) X10*3/uL MPV (9.4-12.3) fL Immature Gran % (Auto) (0.0-0.4) % Neut % (Auto) (45-73) % Lymph % (Auto) (20-40) % [place] % (Auto) (2-11) % Eos % (Auto) (0-4) % Baso % (Auto) (0-2) % Lymph # (Auto) (1.2-4.9) X10*3/uL [place] # (Auto) (0.1-1.2) X10*3/uL Eos # (Auto) (0.0-0.4) X10*3/uL Baso # (Auto) (0.0-0.2) X10*3/uL Abs Immat Gran (auto) (0.00-0.03) X10*3/uL Absolute Neuts (auto) (2.0-8.3) x10*3/uL Absolute Nucleated RBC (0.0-0.012) X10*3/uL Nucleated RBC % (auto) (0.0-0.2) /100WBC PT (10.0-13.1) SEC INR (0.9-1.1) Sodium (135-145) mmol/L Potassium (3.3-5.1) mmol/L Chloride (96-108) mmol/L Carbon Dioxide (22-29) mmol/L Anion Gap (12-20) BUN (9-16) mg/dL Creatinine (0.5-1.4) mg/dL Estim Creat Clear Calc Estimated GFR Random Glucose (60-115) mg/dL Calcium (8.4-10.2) mg/dL Magnesium (1.6-2.6) mg/dL Total Bilirubin (0.0-1.0) mg/dL Direct Bilirubin (0.0-0.5) mg/dL AST (5-31) U/L ALT (0-31) U/L Alkaline Phosphatase (39-117) U/L Troponin I High Sens < 3.5 (<3.5-17.0) ng/L Total Protein (6.5-8.0) g/dL Albumin (3.5-5.0) g/dL COVID-19 ([facility]INDER) Negative (Negative) COVID-19 Clin Com See Note <KOKI Angulo - Last Filed: 07/28/22 18:46> Critical Care Time Critical Care Time Critical Care Time: No <KOKI Angulo - Last Filed: 07/28/22 18:46> Discharge Plan Discharge Clinical Impression: Uncontrolled hypertension, Facial numbness <Anjana Kelley NP - Last Filed: 07/28/22 16:16> Patient Disposition: Admitted As Inpatient <Anjana Kelley NP - Last Filed: 07/28/22 16:16> Prescriptions: No Action calcium carbonate [Calcium 600] 600 mg calcium (1,500 mg) Tablet 600 mg PO DAILY cholecalciferol (vitamin D3) [Vitamin D3] 25 mcg (1,000 unit) Capsule 25 mcg PO DAILY turmeric root extract 500 mg Capsule 500 mg PO DAILY magnesium oxide 400 mg magnesium Tablet 400 mg PO DAILY nicotine 14 mg/24 hr Patch 24 Hour 14 mg transdermal DAILY Qty: 28 2RF atorvastatin 80 mg Tablet 80 mg PO DAILY Qty: 30 2RF aspirin 81 mg Tablet,Chewable 81 mg PO DAILY Qty: 30 2RF nicotine (polacrilex) 2 mg gum 2 mg buccal Q2H Qty: 120 5RF losartan 100 mg tablet 100 mg PO DAILY Qty: 30 2RF <Anjana Kelley NP - Last Filed: 07/28/22 16:16>
--- NOTE | 2022-07-28 16:14 | ECG_ITS ---
Test Reason : STROKE Blood Pressure : / mmHG Vent. Rate : 071 BPM Atrial Rate : 071 BPM P-R Int : 124 ms QRS Dur : 096 ms QT Int : 414 ms P-R-T Axes : 038 044 048 degrees QTc Int : 449 ms Normal sinus rhythm with sinus arrhythmia Minimal voltage criteria for LVH, may be normal variant ( [place] product ) Borderline ECG When compared with ECG of 21-APR-2022 12:39, No significant change was found Referred By: Anjana Kelley Electronically Signed By:Ignacio Linton
[2022-07-28 16:30] LABS: MANUAL DIFF FLAG NO
[2022-07-28 16:32] LABS: Basophils Absolute Auto 0.1 X10*3/uL (0.0-0.2); Basophils Percent Auto 0.8 % (0-2); Eosinophils Absolute Auto 0.2 X10*3/uL (0.0-0.4); Eosinophils Percent Auto 2.5 % (0-4); Hematocrit 39.6 % (37.0-47.0); Hemoglobin 13.3 g/dl (12.0-16.0); Imm Gran Abs Auto 0.05 X10*3/uL (0.00-0.03); Imm Gran Pct Auto 0.5 % (0.0-0.4); Lymphocytes Percent Auto 21.1 % (20-40); Mean Corpuscular HGB Conc 33.6 g/dl (31.0-35.0); Mean Corpuscular Volume 89.2 fL (80.0-98.0); Mean Platelet Volume 9.2 fL (9.4-12.3); Monocytes Absolute Auto 0.6 X10*3/uL (0.1-1.2); Monocytes Percent Auto 6.9 % (2-11); Neutrophils Absolute Auto 6.3 x10*3/uL (2.0-8.3); Neutrophils Percent Auto 68.2 % (45-73); Platelet Count 286 X10*3/uL (160-400); Red Blood Count 4.44 X10*6/uL (4.20-5.50); White Blood Count 9.3 X10*3/uL (4.8-10.8)
[2022-07-28] MEDS: iohexoL 350 MG/ML 100 ML INFUS..BTL IV (16:37)
[2022-07-28 16:54] LABS: Alanine Aminotransferase 27 U/L (0-31); Albumin Level 4.5 g/dL (3.5-5.0); Alkaline Phosphatase 103 U/L (39-117); Anion Gap 16 (12-20); Aspartate Amino Transferase 21 U/L (5-31); Bilirubin Direct < 0.2 mg/dL (0.0-0.5); Bilirubin Total 0.4 mg/dL (0.0-1.0); Blood Urea Nitrogen 18 mg/dL (9-16); Calcium 9.8 mg/dL (8.4-10.2); Carbon Dioxide 24 mmol/L (22-29); Chloride 104 mmol/L (96-108); Creatinine Clr Calc Pharmacy 61.8; Estimated Glomerular Filt Rate > 60; Glucose Random 106 mg/dL (60-115); Magnesium 1.8 mg/dL (1.6-2.6); Potassium 3.9 mmol/L (3.3-5.1); Sodium 140 mmol/L (135-145); Total Protein 7.2 g/dL (6.5-8.0)
[2022-07-28 17:04] LABS: Troponin-I High Sensitivity < 3.5 ng/L (<3.5-17.0)
[2022-07-28 17:31] LABS: COVID-19 Test Negative (Negative); IDNOW Serial# BCCEAD1C
[2022-07-28 17:54] LABS: INTERNATIONAL NORM RATIO 0.9 (0.9-1.1); Prothrombin Time 10.7 SEC (10.0-13.1)
[2022-07-28] MEDS: Nicotine 14 MG PATCH.TD24 TRANSDERMA (18:27)
[2022-07-28] MEDS: Metoprolol Tartrate 5 MG/5 ML VIAL 2.5 MG IVPUSH (18:27)
--- NOTE | 2022-07-28 18:55 | P.HPHOSP_ITS ---
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 Patient states that she has been feeling ?off? since this morning at 08:00 when she began feeling dizzy. Patient notes that this is a similar presentation to when she experienced her TIAs and she immediately thought she was experiencing another one. Dizziness lasted for approximately 30 minutes then went away and she felt fine for another 30 minutes, after which she then felt nauseous for approximately 1 hour, denies vomiting. After this she felt well enough to go shopping and when she went to return to her car she suddenly experienced a severe right-sided headache, as if ?someone was hitting my head with a hammer?. Patient also experienced numbness in the face from the nose and cheeks upwards bilaterally, with blurriness in her right eye and pain in her jaw. Patient denies experiencing any weakness, numbness, or pain lower than her jaw. Denies any facial droop, difficulty speaking, or any mental or motor deficits. Patient called her PCP who told her to come to the emergency. Patient denies chest pain/pressure, palpitations. Shortness of breath. Denies fever, chills, vomiting. No abdominal pain or change in bowel or bladder habits. Of note patient states that she has experienced 3 TIAs since her sensory stroke in April 2022. ? In the ED labs were unremarkable. CT of head showed no acute intercranial pathology, and CTA of head and neck showed?2. High-grade stenosis or large vessel occlusion or intracranial aneurysm. Troponin negative, EKG showed normal sinus rhythm with no evidence of acute ischemia. Pt was treated with 2.5 mg of Lopressor for her HTN. MRI ordered but staffing issues did not allow it to be performed today. Pt will be admitted to observation for further workup for TIA. Review of Systems Review of Systems: Severe, sudden onset right-sided headache Blurriness of right eye Pain in jaw bilateral Numbness of face from nose and cheek bones superiorly Denies chest pain/pressure No numbness, tingling, weakness in extremities bilaterally Yes all other systems are reviewed and are negative [facility] Medical History Hypertension Social History Household Members: Significant Other Household Members Other:: 1 Housing: House Do you presently have visiting nurse or other home services: No Alcohol intake: current Alcohol intake frequency: 0-2 drinks per day Alcohol type: beer Patient Tobacco Use Status: Current everyday Tobacco user Tobacco use type: Cigarette Cigarettes Per Day: 10 Smoked in Last 30 Days: Yes e-Cigarette/Vaping Use: Never Used Patient Interested in Nicotine Replacement: Yes Patient Given Instructions on How to Stop Smoking: Yes Date Education Initiated: 07/28/22 Second Hand Smoke Exposure: No Use of substances other than those prescribed or required for medical reasons: No Currently Displaying Signs/Symptoms of Drug Intoxication Withdrawal: No Any prior treatment program specific to substance use: No Have you been hit, kicked, punched, or otherwise hurt by someone within the past year? If so, by whom?: No Do you feel safe in your current relationship?: Yes Is there a partner from a previous relationship who is making you feel unsafe now?: No Are you made to feel afraid or neglected: No Advance Directives: No Advance Directives Information Provided: Yes Do you have thoughts of harming others: None Do you have a plan to hurt others: No Plan Recently lost weight without trying: No How much weight loss: Not applicable Eating poorly because of decreased appetite: No Nutrition screen score: 0 Nutrition Risks: No Nutritional Risk Patient : No : No Poor oral hygiene: No service: No Current occupational status: employed Meds Allergies Allergy/AdvReac Type Severity Reaction Status Date / Time Penicillins [PENICILLINS] Allergy Unknown RASH Unverified 04/01/20 14:51 Active Medications: Current Medications Pharmacy Consult (Consult Rx Perform Med Rec) 1 each MISCELLANE ONCE PRN PRN Reason: Consult order Home Medications Medication Instructions Recorded Confirmed Last Taken Type calcium carbonate 600 mg calcium 600 mg PO DAILY 04/21/22 07/28/22 07/28/22 History (1,500 mg) tablet (Calcium) cholecalciferol (vitamin D3) 25 25 mcg PO DAILY 04/21/22 07/28/22 07/28/22 History mcg (1,000 unit) capsule (Vitamin D3) magnesium oxide 400 mg PO DAILY 04/21/22 07/28/22 07/28/22 History hydrochlorothiazide 12.5 mg capsule 1 cap PO DAILY 07/28/22 07/28/22 07/28/22 History Physical Exam Vital Signs and Narrative: Vital Signs: Last Vital Signs Temp 97.4 F 07/28/22 16:10 Pulse 110 H 07/28/22 16:10 Resp 18 07/28/22 16:10 BP 197/102 H 07/28/22 16:10 Pulse Ox 99 07/28/22 16:10 O2 Del Method 07/28/22 16:10 BMI result Body Mass Index 25.0 Constitutional: Alert, in no acute distress. Mental Status: Oriented to person, place and time. Eyes: Pupils are equal, round, and reactive to light. Head: Atraumatic. Diminished sensation to light touch on left side. Ear, Nose, and Throat: Nose with diminished sensation to light touch. Oropharynx clear, mucous membranes moist. Ears and nose without deformities. Trachea midline. Respiratory: Diffuse expiratory rhonchi bilaterally. Cardiovascular: S1, S2 regular. No murmurs, rubs, or gallops. Gastrointestinal: Abdomen soft, non-tender, non-distended. Normal bowel sounds. Neurologic: Cranial nerves II-XI are grossly intact. No focal neurological deficits. Moves all extremities spontaneously. Skin: No rashes or lesions noted. Musculoskeletal: No cyanosis or clubbing. Extremities: No edema. Psychiatric: Normal mood and affect. Results Labs 07/28/22 16:20 07/28/22 16:20 Labs: Laboratory Results - last 24 hr 07/28/22 07/28/22 07/28/22 16:20 16:20 16:20 MCV 89.2 MCH 30.0 MCHC 33.6 RDW 13.0 Plt Count 286 MPV 9.2 L Immature Gran % (Auto) 0.5 H Neut % (Auto) 68.2 Lymph % (Auto) 21.1 [place] % (Auto) 6.9 Eos % (Auto) 2.5 Baso % (Auto) 0.8 Lymph # (Auto) 2.0 [place] # (Auto) 0.6 Eos # (Auto) 0.2 Baso # (Auto) 0.1 Abs Immat Gran (auto) 0.05 H Absolute Neuts (auto) 6.3 Absolute Nucleated RBC 0.000 Nucleated RBC % (auto) 0.0 PT 10.7 INR 0.9 Anion Gap 16 Estim Creat Clear Calc 61.8 Estimated GFR > 60 Random Glucose 106 Calcium 9.8 Magnesium 1.8 Total Bilirubin 0.4 Direct Bilirubin < 0.2 AST 21 ALT 27 Alkaline Phosphatase 103 Troponin I High Sens Total Protein 7.2 Albumin 4.5 COVID-19 (MANINDER) COVID-19 Clin Com 07/28/22 07/28/22 16:20 17:07 MCV MCH MCHC RDW Plt Count MPV Immature Gran % (Auto) Neut % (Auto) Lymph % (Auto) [place] % (Auto) Eos % (Auto) Baso % (Auto) Lymph # (Auto) [place] # (Auto) Eos # (Auto) Baso # (Auto) Abs Immat Gran (auto) Absolute Neuts (auto) Absolute Nucleated RBC Nucleated RBC % (auto) PT INR Anion Gap Estim Creat Clear Calc Estimated GFR Random Glucose Calcium Magnesium Total Bilirubin Direct Bilirubin AST ALT Alkaline Phosphatase Troponin I High Sens < 3.5 Total Protein Albumin COVID-19 (MANINDER) Negative COVID-19 Clin Com See Note Imaging Radiologist's Impressions: Impressions Head CT 07/28/22 16:31 IMPRESSION: No acute intracranial pathology. Head/Neck CTA 07/28/22 16:45 IMPRESSION: No arterial high grade stenosis or large vessel occlusion in the head or neck. No intracranial aneurysm is identified. 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 Patient will be admitted to observation for TIA. TIA Head CT showed no acute intracranial pathology, head and neck CTA showed no michelle rial high-grade stenosis or large vessel occlusion in the head or neck or intracranial aneurysm Possibly secondary to uncontrolled hypertension TPA not given because patient was outside the therapeutic window Patient now nearly back to baseline with the exception of numbness to the nose and corners of eyes Continue aspirin, statin MRI of head Neurology consult HTN, uncontrolled Continue losartan, hydrochlorothiazide Follow-up outpatient with PCP to consider increasing dosages or adding a 3rd ag ent HLD Continue statin Repeat lipid panel Tobacco dependence Patient currently smokes around half pack daily Lung sounds with diffuse rhonchi Nicotine patch Counseled on tobacco cessation Full Code Attending:?Dr. Amaya DVT Prophylaxis: Lovenox Pt will be admitted to observation for TIA. Pending MRI availability and results, patient could likely be discharged tomorrow. Time Spent With Patient Time: Total time managing care of this patient today ____ minutes. Quality Stroke Does the patient have a stroke diagnosis?: Yes Reason for No Anti-thrombotic by Day Two: Not indicated (Patient's last well time outside of tPA therapeutic window.) VTE Prior VTE?: No VTE Risk Level:: Medical - moderate - high VTE Device Contraindication: Treatment Not Indicated VTE Drug Contraindication: N/A - Med Ordered
--- NOTE | 2022-07-28 19:26 | PHA.MEDREC ---
Pharmacy Consult ? Medication Reconciliation Pharmacy has completed the medication reconciliation.
[2022-07-28 19:27] VITALS: BP 158/80; PULSE 74; RESP 13
[2022-07-28 20:11] LABS: Cholesterol 226 mg/dL; HDL Cholesterol 35 mg/dL; LDL Cholesterol Calculated 113 mg/dl; Triglycerides 393 mg/dL
[2022-07-28] MEDS: Acetaminophen 325 MG TABLET 650 MG PO (20:44)
[2022-07-28 20:48] VITALS: BP 136/77; PULSE 75; RESP 13; O2SAT 97
--- NOTE | 2022-07-28 20:49 | PC.NURSE ---
PT REPORTING INTENSE VILLELA THAT HAS SINCE RESOLVED. REPORTS BLURRED VISION AND FEELING OF DROOPINESS IN R EYE. NEURO ASSESSMENT INTACT. NO SLURRED SPEECH. DR CERON NOTIFIED AT THIS TIME. NO NEW ORDERS AT THIS TIME
--- NOTE | 2022-07-28 21:14 | MHC.CM.PN ---
OLGA 07/28. Met with admitted to observation patient and her daughter; awaiting bed assignment. Lives with partner. No DME/services. Employed. PCP Dr. Boss [facility] [place] [facility]. No HCP. Reviewed, completed and signed. Copies given and uploaded into [employer] and [facility] [email or web address]. HCP/daughter Tanisha Glover ([phone]). 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 States will not get another. D/C plan: Home without services. Family to transport. CM to follow for discharge planning.
[2022-07-28 22:30] VITALS: BP 128/66; PULSE 72; RESP 16
[2022-07-28 22:49] VITALS: BP 125/62; PULSE 69; RESP 17; TEMP 36.3; O2SAT 95
[2022-07-29 03:40] VITALS: BP 153/71; PULSE 60; RESP 17; TEMP 36.4; O2SAT 94
[2022-07-29 08:00] VITALS: BP 142/67; PULSE 90; RESP 16; TEMP 35.9; O2SAT 96
[2022-07-29] MEDS: Magnesium Oxide 400 MG TABLET PO (09:05)
[2022-07-29] MEDS: hydroCHLOROthiazide 12.5 MG TABLET PO (09:05)
[2022-07-29] MEDS: Nicotine 14 MG PATCH.TD24 TRANSDERMA (09:06)
[2022-07-29] MEDS: Cholecalciferol (Vitamin D3) 25 MCG TABLET PO (09:06)
[2022-07-29] MEDS: Aspirin 81 MG TAB.CHEW PO (09:06)
[2022-07-29] MEDS: Atorvastatin Calcium 80 MG TABLET PO (09:06)
[2022-07-29] MEDS: Losartan Potassium 50 MG TABLET 100 MG PO (09:06)
[2022-07-29] MEDS: Acetaminophen 325 MG TABLET 650 MG PO (11:02)
--- NOTE | 2022-07-29 12:10 | P.PNIM_ITS ---
Subjective Subjective Date of Service: 07/29/22 Interval History: Symptoms essentially resolved save some minimal facial numbness Review of Systems Denies chest pain Denies shortness of breath Denies nausea vomiting diarrhea Denies fever chills Physical Exam Vital Signs: Vital Signs: Last Vital Signs Temp 96.7 F L 07/29/22 08:00 Pulse 90 07/29/22 08:00 Resp 16 07/29/22 08:00 BP 142/67 H 07/29/22 08:00 Pulse Ox 96 07/29/22 08:00 O2 Del Method 07/29/22 08:00 BMI result Body Mass Index 25.0 Const: Other: Awake alert no acute distress Resp: Other: Clear to auscultation bilaterally no rales rhonchi or wheezes Cardio: Other: No S4; positive S1-S2; no S3 murmurs rubs or gallops GI: Other: Soft nontender nondistended normoactive bowel sounds Neuro: Other: Cranial nerves 2-12 grossly intact as tested. Motor is 5/5 all extremities. Sensation is intact. Extrem: Other: No edema bilaterally Objective Data Active Medications Acetaminophen (Acetaminophen 325 Mg Tablet) 650 mg PO Q6H PRN PRN Reason: Pain, Mild (Pain Scale 1-3) Last Admin: 07/29/22 11:02 Dose: 650 mg Documented By: COTEMA Aspirin (Aspirin 81 Mg Tab.Chew) 81 mg PO DAILY [facility] Last Admin: 07/29/22 09:06 Dose: 81 mg Documented By: COTEMA Atorvastatin Calcium (Atorvastatin Calcium 80 Mg Tablet) 80 mg PO DAILY [facility] Last Admin: 07/29/22 09:06 Dose: 80 mg Documented By: COTEMA Calcium Carbonate (Calcium Carbonate 500 Mg Tablet) 600 mg PO DAILY [facility] Last Admin: 07/29/22 09:06 Dose: 600 mg Documented By: COTEMA Docusate Sodium (Docusate Sodium 100 Mg Capsule) 100 mg PO DAILY PRN PRN Reason: Constipation Hydrochlorothiazide (Hydrochlorothiazide 12.5 Mg Tablet) 12.5 mg PO DAILY [facility]; Protocol Last Admin: 07/29/22 09:05 Dose: 12.5 mg Documented By: COTEMA Losartan Potassium (Losartan Potassium 50 Mg Tablet) 100 mg PO DAILY [facility]; Protocol Last Admin: 07/29/22 09:06 Dose: 100 mg Documented By: HO.COTEMA Magnesium Oxide (Magnesium Oxide 400 Mg Tablet) 400 mg PO DAILY [facility] Last Admin: 07/29/22 09:05 Dose: 400 mg Documented By: SINGH Nicotine (Nicotine 14 Mg Patch.Td24) 14 mg TRANSDERMA DAILY [facility] Last Admin: 07/29/22 09:06 Dose: 14 mg Documented By: SINGH Ondansetron HCl (Ondansetron Hcl 4 Mg/2 Ml Vial) 4 mg IVPUSH Q8H PRN PRN Reason: Nausea and Vomiting Pharmacy Consult (Consult Rx Perform Med Rec) 1 each MISCELLANE ONCE PRN PRN Reason: Consult order Vitamin D (Cholecalciferol (Vitamin D3) 25 Mcg Tablet) 25 mcg PO DAILY [facility] Last Admin: 07/29/22 09:06 Dose: 25 mcg Documented By: SINGH Labs 07/28/22 16:20 07/28/22 16:20 Labs: Laboratory Results - last 24 hr 07/28/22 07/28/22 07/28/22 16:20 16:20 16:20 MCV 89.2 MCH 30.0 MCHC 33.6 RDW 13.0 Plt Count 286 MPV 9.2 L Immature Gran % (Auto) 0.5 H Neut % (Auto) 68.2 Lymph % (Auto) 21.1 [place] % (Auto) 6.9 Eos % (Auto) 2.5 Baso % (Auto) 0.8 Lymph # (Auto) 2.0 [place] # (Auto) 0.6 Eos # (Auto) 0.2 Baso # (Auto) 0.1 Abs Immat Gran (auto) 0.05 H Absolute Neuts (auto) 6.3 Absolute Nucleated RBC 0.000 Nucleated RBC % (auto) 0.0 PT 10.7 INR 0.9 Anion Gap 16 Estim Creat Clear Calc 61.8 Estimated GFR > 60 Random Glucose 106 Calcium 9.8 Magnesium 1.8 Total Bilirubin 0.4 Direct Bilirubin < 0.2 AST 21 ALT 27 Alkaline Phosphatase 103 Troponin I High Sens Total Protein 7.2 Albumin 4.5 Triglycerides 393 Cholesterol 226 LDL Cholesterol, Calc 113 HDL Cholesterol 35 COVID-19 (MANINDER) COVID-19 Clin Com 07/28/22 07/28/22 16:20 17:07 MCV MCH MCHC RDW Plt Count MPV Immature Gran % (Auto) Neut % (Auto) Lymph % (Auto) [place] % (Auto) Eos % (Auto) Baso % (Auto) Lymph # (Auto) [place] # (Auto) Eos # (Auto) Baso # (Auto) Abs Immat Gran (auto) Absolute Neuts (auto) Absolute Nucleated RBC Nucleated RBC % (auto) PT INR Anion Gap Estim Creat Clear Calc Estimated GFR Random Glucose Calcium Magnesium Total Bilirubin Direct Bilirubin AST ALT Alkaline Phosphatase Troponin I High Sens < 3.5 Total Protein Albumin Triglycerides Cholesterol LDL Cholesterol, Calc HDL Cholesterol COVID-19 (MANINDER) Negative COVID-19 Clin Com See Note Assessment and Plan (1) TIA (transient ischemic attack): Status: Acute (2) Left facial numbness: Status: Acute (3) Hypertension: Status: Acute (4) Dyslipidemia: Status: Acute Plan Pt is a 62-year-old female with a PMH significant for 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 Symptoms resolved this a.m. 1.TIA -MRI this a.m. -neurologic consult pending -continue statin/ASA 2.HTN, -continue losartan/hydrochlorothiazide -add amlodipine 5 mg daily 3.HLD Continue statin Repeat lipid panel 4.Tobacco dependence -nicotine patch -encouraged cessation Full Code Lovenox Pt will be admitted to observation for TIA. Pending MRI availability and results, patient could likely be discharged tomorrow. Time Spent With Patient Time: Total time managing care of this patient today ____ minutes. Quality Stroke Does the patient have a stroke diagnosis?: Yes Reason for No Anti-thrombotic by Day Two: Not indicated (Patient's last well time outside of tPA therapeutic window.) VTE Prior VTE?: No VTE Risk Level:: Medical - moderate - high VTE Device Contraindication: Treatment Not Indicated VTE Drug Contraindication: N/A - Med Ordered
--- NOTE | 2022-07-29 12:58 | P.DS_ITS ---
DS: Providers Provider Date of Service: 07/29/22 Date of admission: 07/28/22 19:30 Date of discharge: 07/29/22 Primary care physician: Unknown Physician Consults: 07/28/22 19:15 Consult to Neurology Routine Consulting Provider: [facility] Reason for consultation: ?TIA Has provider been notified: No DS: Diagnosis Discharge Diagnosis (1) TIA (transient ischemic attack): Status: Acute (2) Left facial numbness: Status: Acute (3) Hypertension: Status: Acute (4) Dyslipidemia: Status: Acute DS: Summary Hospital Course Hospital Course: 62-year-old female with a PMH significant for 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 Patient states that she has been feeling ?off? since this morning at 08:00 when she began feeling dizzy.? Patient notes that this is a similar presentation to when she experienced her TIAs and she immediately thought she was experiencing another one.? Dizziness lasted for approximately 30 minutes then went away and she felt fine for another 30 minutes, after which she then felt nauseous for approximately 1 hour, denies vomiting.? After this she felt well enough to go shopping and when she went to return to her car she suddenly experienced a severe right-sided headache, as if ?someone was hitting my head with a hammer?.? Patient also experienced numbness in the face from the nose and cheeks upwards bilaterally, with blurriness in her right eye and pain in her jaw. Patient denies experiencing any weakness, numbness, or pain lower than her jaw.? Denies any facial droop, difficulty speaking, or any mental or motor deficits.? Patient called her PCP who told her to come to the emergency.? Patient denies chest pain/pressure, palpitations.? Shortness of breath.? Denies fever, chills, vomiting.? No abdominal pain or change in bowel or bladder habits.? Of note patient states that she has experienced 3 TIAs since her sensory stroke in April 2022. ? In the ED labs were unremarkable. CT of head showed no acute intercranial pathology, and CTA of head and neck showed?2. High-grade stenosis or large vessel occlusion or intracranial aneurysm.? Troponin negative, EKG showed normal sinus rhythm with no evidence of acute ischemia. Pt was treated with 2.5 mg of Lopressor for her HTN.? MRI ordered but staffing issues did not allow it to be performed today. Pt will be admitted to observation for further workup for TIA. Hospital course Admitted to general medical floor. Symptoms resolved essentially before patient reached the floor by her account. MRI done this a.m. completely unremarkable. Patient is currently on high-dose statin aspirin and needs improved blood pressure control. She will be discharged home and has follow-up with her PCP within the week Time Spent with Patient Time attestation: Total time managing care of this patient today ____ minutes. Discharge coordination time: Greater than 30 minutes Quality: Safe Use of Opioids Does Pt have an Active Cancer Diagnosis on the Problem List?: No Quality: Stroke Does the patient have a stroke diagnosis?: No Physical Exam Vital Signs: Vital Signs: Last Vital Signs Temp 96.7 F L 07/29/22 08:00 Pulse 90 07/29/22 08:00 Resp 16 07/29/22 08:00 BP 142/67 H 07/29/22 08:00 Pulse Ox 96 07/29/22 08:00 O2 Del Method 07/29/22 08:00 BMI result Body Mass Index 25.0 Const: Other: Awake alert no acute distress Resp: Other: Clear to auscultation bilaterally no rales rhonchi or wheezes Cardio: Other: No S4; positive S1-S2; no S3 murmurs rubs or gallops GI: Other: Soft nontender nondistended normoactive bowel sounds Neuro: Other: Cranial nerves 2-12 grossly intact as tested. Motor is 5/5 all extremities. Sensation is intact. Extrem: Other: No edema bilaterally DS: Data Data Completed and Pending Labs on day of discharge: Laboratory Results - last 24 hr 07/28/22 07/28/22 07/28/22 16:20 16:20 16:20 WBC 9.3 RBC 4.44 Hgb 13.3 Hct 39.6 MCV 89.2 MCH 30.0 MCHC 33.6 RDW 13.0 Plt Count 286 MPV 9.2 L Immature Gran % (Auto) 0.5 H Neut % (Auto) 68.2 Lymph % (Auto) 21.1 [place] % (Auto) 6.9 Eos % (Auto) 2.5 Baso % (Auto) 0.8 Lymph # (Auto) 2.0 [place] # (Auto) 0.6 Eos # (Auto) 0.2 Baso # (Auto) 0.1 Abs Immat Gran (auto) 0.05 H Absolute Neuts (auto) 6.3 Absolute Nucleated RBC 0.000 Nucleated RBC % (auto) 0.0 PT 10.7 INR 0.9 Sodium 140 Potassium 3.9 Chloride 104 Carbon Dioxide 24 Anion Gap 16 BUN 18 H Creatinine 0.86 Estim Creat Clear Calc 61.8 Estimated GFR > 60 Random Glucose 106 Calcium 9.8 Magnesium 1.8 Total Bilirubin 0.4 Direct Bilirubin < 0.2 AST 21 ALT 27 Alkaline Phosphatase 103 Troponin I High Sens Total Protein 7.2 Albumin 4.5 Triglycerides 393 Cholesterol 226 LDL Cholesterol, Calc 113 HDL Cholesterol 35 COVID-19 (MANINDER) COVID-[place] 07/28/22 07/28/22 16:20 17:07 WBC RBC Hgb Hct MCV MCH MCHC RDW Plt Count MPV Immature Gran % (Auto) Neut % (Auto) Lymph % (Auto) [place] % (Auto) Eos % (Auto) Baso % (Auto) Lymph # (Auto) [place] # (Auto) Eos # (Auto) Baso # (Auto) Abs Immat Gran (auto) Absolute Neuts (auto) Absolute Nucleated RBC Nucleated RBC % (auto) PT INR Sodium Potassium Chloride Carbon Dioxide Anion Gap BUN Creatinine Estim Creat Clear Calc Estimated GFR Random Glucose Calcium Magnesium Total Bilirubin Direct Bilirubin AST ALT Alkaline Phosphatase Troponin I High Sens < 3.5 Total Protein Albumin Triglycerides Cholesterol LDL Cholesterol, Calc HDL Cholesterol COVID-19 (MANINDER) Negative COVID-19 Clin Com See Note Discharge Plan Discharge Patient Disposition: Home, Self-Care Discharge Diagnosis: Facial numbness Referrals: Physician,Unknown J [Primary Care Provider] - 1 Week Discharge Medications: Continued calcium carbonate [Calcium 600] 600 mg calcium (1,500 mg) Tablet 600 mg PO DAILY cholecalciferol (vitamin D3) [Vitamin D3] 25 mcg (1,000 unit) Capsule 25 mcg PO DAILY magnesium oxide 400 mg magnesium Tablet 400 mg PO DAILY nicotine 14 mg/24 hr Patch 24 Hour 14 mg transdermal DAILY Qty: 28 2RF atorvastatin 80 mg Tablet 80 mg PO DAILY Qty: 30 2RF aspirin 81 mg Tablet,Chewable 81 mg PO DAILY Qty: 30 2RF losartan 100 mg tablet 100 mg PO DAILY Qty: 30 2RF hydrochlorothiazide 12.5 mg capsule 1 cap PO DAILY Discharge Orders: Discharge Order (Routine); Ordered 07/29/22 Ordered By: Dwayne Fragoso Diet: Advance to usual diet Activity on Discharge: As tolerated Stand Alone Forms: Patient Portal Discharge page Care Plan Goals: Need to discuss blood pressure medicines with PCP next appointment Health Concerns: Attempt to quit smoking Plan of Treatment: Resume all medicines as before hospital Assessment: See discharge summary
== END 2022-07-29 13:17 | disposition home or self-care (01) ==
LOC: HO.ED 18:46 → HO.EDOVER 19:48 → HO.S3 21:35
PROVIDERS: Nurse Practitioner Family; Admitting Provider Student in an Organized Health Care Education/Training Program; Emergency Provider Emergency Medicine; Visit Provider Hospitalist
DX: R20.0 Anesthesia of skin (principal); H53.8 Other visual disturbances; R51.9 Headache, unspecified; R68.84 Jaw pain; I10 Essential (primary) hypertension; E78.5 Hyperlipidemia, unspecified; R42 Dizziness and giddiness; F17.210 Nicotine dependence, cigarettes, uncomplicated; Z86.73 Personal history of transient ischemic attack (TIA), and cerebral infarction without residual deficits; Z71.6 Tobacco abuse counseling; Z20.822 Contact with and (suspected) exposure to COVID-19; Z20.828 Contact with and (suspected) exposure to other viral communicable diseases; Z79.899 Other long term (current) drug therapy
CPT/HCPCS: 36415; 70450; 70496; 70498; 70551; 80048; 80061; 80076; 83735; 84484; 85025; 85610; 87635; 93005; 96374; 96375; 99221; 99285; Q9967

== ENCOUNTER 2023-11-09 08:41 | Emergency (ER) | payer MEDICARE, MEDICAID, SELFPAY ==
--- NOTE | ~2023-11-09 | XR_ITS ---
EXAMINATION: XR CHEST CLINICAL INFORMATION: Chest pain. COMPARISON: 04/20/2022 TECHNIQUE: 2 views of the chest were obtained. FINDINGS: The lungs are well expanded. No focal consolidation. No pleural effusion. Cardiac silhouette is unchanged. XR/XR chest 2V IMPRESSION: No acute abnormality.
--- NOTE | 2023-11-09 08:48 | ECG_ITS ---
Test Reason : chest pain/tightness Blood Pressure : / mmHG Vent. Rate : 077 BPM Atrial Rate : 077 BPM P-R Int : 120 ms QRS Dur : 090 ms QT Int : 390 ms P-R-T Axes : 034 033 043 degrees QTc Int : 441 ms Sinus rhythm with occasional Premature ventricular complexes Otherwise normal ECG When compared with ECG of 28-JUL-2022 16:51, Premature ventricular complexes are now Present Referred By: Generic ED Physician Electronically Signed By:JAZMINE PAUL MD
[2023-11-09 08:59] VITALS: BP 160/91; PULSE 95; RESP 16; TEMP 36.7; O2SAT 99; BMI 25.2
[2023-11-09 09:06] LABS: MANUAL DIFF FLAG NO
--- NOTE | 2023-11-09 09:10 | ED.CHESTPAIN ---
HPI - Chest Pain General Chief Complaint: Chest Pain Stated Complaint: heart attack last night ? Time Seen by Provider: 11/09/23 09:07 Source: patient Mode of arrival: ambulatory Limitations: no limitations History of Present Illness HPI narrative: Patient is a 63-year-old female who presents emergency department for evaluation of chest pain. She reports that yesterday she felt quite fatigued while at work. She also admits to having some stomach upset which is chronic for her and she tried Pepto-Bismol without much improvement. By yesterday evening she reports sharp sudden pain to the left anterior chest that lasted a few seconds. She got out of bed, and went to the bathroom, by the time she had stood up to go back to bed she began experiencing a severe squeezing sensation to the diffuse anterior chest radiating into her back, bilateral shoulders neck and jaw. She reports this pain to be severe for approximately 10 minutes. She contemplated calling 911, but had reservations as she had already put her to bed who she states is disabled and she did not feel comfortable leaving him alone. After approximately 10 minutes her symptoms decreased significantly and she was able to go to bed. She reports today the pain is primarily in her left anterior chest and left shoulder, described as an aching pain, ?it feels like after you get into an accident? currently 09/22. She took her routine aspirin 81 mg earlier this morning. She denies any fevers, chills, shortness of breath, difficulty breathing, cough, nausea, vomiting. Related Data Home Medications ?Medication ?Instructions ?Recorded ?Confirmed calcium carbonate (Calcium 600) 600 mg PO DAILY 04/21/22 07/28/22 cholecalciferol (vitamin D3) 25 25 mcg PO DAILY 04/21/22 07/28/22 mcg (1,000 unit) capsule (Vitamin D3) magnesium oxide 400 mg PO DAILY 04/21/22 07/28/22 hydrochlorothiazide 12.5 mg capsule 1 cap PO DAILY 07/28/22 07/28/22 Previous Rx's ?Medication ?Instructions ?Recorded aspirin 81 mg chewable tablet 81 mg PO DAILY #30 tabs 04/22/22 atorvastatin 80 mg tablet 80 mg PO DAILY #30 tabs 04/22/22 losartan 100 mg tablet 100 mg PO DAILY #30 tabs 04/22/22 nicotine 14 mg/24 hr daily 14 mg transdermal DAILY #28 ea 04/22/22 transdermal patch Allergies Allergy/AdvReac Type Severity Reaction Status Date / Time Penicillins [PENICILLINS] Allergy Unknown RASH Verified 11/09/23 09:02 Review of Systems Review of Systems: Yes all other systems are reviewed and are negative [facility] Past Medical History Attestation statement: The following information was validated with the patient. Source: old records reviewed Medical History TIA (transient ischemic attack) Hypertension Social History Social History Household Members: Significant Other Household Members Other:: 1 Housing: House Do you presently have visiting nurse or other home services: No Alcohol intake: current Alcohol intake frequency: 0-2 drinks per day Alcohol type: beer Comment: pt refusing alarms Patient Tobacco Use Status: Current everyday Tobacco user Tobacco use type: Cigarette Cigarettes Per Day: 10 Smoked in Last 30 Days: No e-Cigarette/Vaping Use: Never Used Second Hand Smoke Exposure: No Use of substances other than those prescribed or required for medical reasons: No Advance Directives: No Advance Directives Information Provided: No service: No Current occupational status: employed Physical Exam Vital Signs: Vital Signs: Last Vital Signs Temp 98.2 F 11/09/23 12:34 Pulse 68 11/09/23 12:34 Resp 19 11/09/23 12:34 BP 145/74 H 11/09/23 12:34 Pulse Ox 100 11/09/23 12:34 O2 Del Method Room Air 11/09/23 12:34 BMI result Body Mass Index 25.2 Appearance: Alert.?Oriented to person, place and time. No acute distress.?Normal affect. Eyes: Pupils equal, round and reactive to light.? ENT: Pharynx normal.?? Neck: Normal inspection.? Neck supple.?? CVS: Heart sounds normal. Normal heart rate and rhythm.? Pulses normal.?? Respiratory: No respiratory distress.? Lung sounds clear to auscultation bilaterally?? Abdomen: Soft and non-tender. Normoactive bowel sounds. No pulsatile mass.?? Skin: Skin warm and dry.? Normal skin color.? Normal skin turgor.?? Extremities: No lower extremity edema.? No calf ttp? Neuro: Moves all extremities spontaneously. Sensation intact bilaterally. CN II-XII intact. No focal neuro deficits. Ambulates with normal steady gait. Course Reevaluation(s) Reevaluation #1: Initial troponin is negative EKG is without acute ischemic findings, will obtain delta troponin. CXR is without acute pathology. Report pain relieves with rest. Transdermal nitro has alleviated chest pain, she does still have 1/10 pain to the left arm/shoulder Reevaluation #2: Delta troponin is flat. Continues to have mild pain. I did consult with Cardiology, Dr. Mortensen, discussed patient case as well as EKG and lab markers, he advises likelihood of ACS is low. Patient feels strongly about going home. Time I do feel that she is stable for discharge, strict return precautions, outpatient follow-up with her primary care provider. All questions were answered. Time: 11:53 Medications Administered Discontinued Medications Generic Name Dose Route Start Last Admin Trade Name Freq PRN Reason Stop Dose Admin Aspirin 243 mg 11/09/23 09:29 11/09/23 09:38 Aspirin 81 Mg Tab.Chew PO 11/09/23 09:30 243 mg ONCE ONE Administration Nitroglycerin 0.5 inch 11/09/23 09:29 11/09/23 09:39 Nitroglycerin 2 % Oint 1 Gm Packet TRANSDERMA 11/09/23 09:30 0.5 inch ONCE ONE Administration Medical Decision Making Medical Decision Making [facility] Narrative: Patient is a 63-year-old female past medical history of hypertension, HLD, TIA who presents to the emergency department for evaluation of chest pain as per HPI. At this time she appears overall well, nontoxic, afebrile. She is hypertensive and mildly tachycardic. Will obtain CBC to evaluate for leukocytosis/ anemia, CMP and lipase to evaluate for abnormal electrolytes /abnormal renal function/ abnormal hepatic/biliary function, EKG and troponin to evaluate for ischemia/ACS. Chest x-ray to evaluate for consolidation/ infiltrate/ mass/ pulmonary congestion. Patient received additional aspirin 243 mg, and trial nitro paste for management. Current heart score of 4. Differential Diagnosis Differential Diagnoses: The differential diagnosis associated with the presentation includes (ACS, pulmonary infiltrate/consolidation, CHF, muscular strain, GERD, gastritis) Admission/Observation Consideration of admission/observation: Escalation of care including admission/observation considered (See narrative above and course narrative for further detail) Lab Data MDM Lab Attestation statement: I reviewed the patient's lab results. CBC reveals no leukocytosis or anemia. No electrolyte derangement. BUN mildly elevated though consistent with baseline, creatinine baseline. LFTs and lipase within normal range. High sensitive troponin is below detectable limits. 11/09/23 09:02 11/09/23 09:02 Labs: Lab Results 11/09/23 11/09/23 Range/Units 09:02 11:02 WBC 5.8 (4.8-10.8) X10*3/uL RBC 4.27 (4.20-5.50) X10*6/uL Hgb 12.9 (12.0-16.0) g/dl Hct 38.3 (37.0-47.0) % MCV 89.7 (80.0-98.0) fL MCH 30.2 (27.0-33.0) pg MCHC 33.7 (31.0-35.0) g/dl RDW 13.4 (11.0-16.0) % Plt Count 263 (160-400) X10*3/uL MPV 9.8 (9.4-12.3) fL Immature Gran % (Auto) 0.5 H (0.0-0.4) % Neut % (Auto) 65.0 (45-73) % Lymph % (Auto) 24.0 (20-40) % [place] % (Auto) 6.2 (2-11) % Eos % (Auto) 3.4 (0-4) % Baso % (Auto) 0.9 (0-2) % Lymph # (Auto) 1.4 (1.2-4.9) X10*3/uL [place] # (Auto) 0.4 (0.1-1.2) X10*3/uL Eos # (Auto) 0.2 (0.0-0.4) X10*3/uL Baso # (Auto) 0.1 (0.0-0.2) X10*3/uL Abs Immat Gran (auto) 0.03 (0.00-0.03) X10*3/uL Absolute Neuts (auto) 3.8 (2.0-8.3) x10*3/uL Absolute Nucleated RBC 0.000 (0.0-0.012) X10*3/uL Nucleated RBC % (auto) 0.0 (0.0-0.2) /100WBC Sodium 141 (135-145) mmol/L Potassium 4.0 (3.3-5.1) mmol/L Chloride 108 (96-108) mmol/L Carbon Dioxide 24 (22-29) mmol/L Anion Gap 13 (12-20) BUN 21 H (9-16) mg/dL Creatinine 0.85 (0.5-1.4) mg/dL Estim Creat Clear Calc 66.8 Estimated GFR > 60 Random Glucose 126 H (60-115) mg/dL Calcium 9.4 (8.4-10.2) mg/dL Total Bilirubin 0.5 (0.0-1.0) mg/dL Direct Bilirubin 0.2 (0.0-0.5) mg/dL AST 19 (5-31) U/L ALT 21 (0-31) U/L Alkaline Phosphatase 99 (39-117) U/L Troponin I High Sens < 2.7 < 2.7 (<3.5-17.0) ng/L B-Natriuretic Peptide < 10 (<100) pg/mL Total Protein 7.0 (6.5-8.0) g/dL Albumin 4.2 (3.5-5.0) g/dL Lipase 23 (8-78) U/L Independent Interpretation I performed an independent interpretation of an: EKG and Plain X-Ray (No infiltrate/pleural effusion) Interpretation: Rate: 77 Rhythm:? Sinus rhythm with PVC [place]:? Normal Normal P waves.? Normal [place].?? Normal QRS complex.?? ST T wave :??No ST elevation, no ST depression, no T-wave inversion qTC: 441 prior studies:? July 2022 The study has been interpreted contemporaneously by me. Radiology Impression Discussion of test interpretation with radiology: I have reviewed the radiologist's reading. Radiologist Impression: XR/XR chest 2V IMPRESSION: No acute abnormality. External Record Review External record reviewed: Outpatient record Scores Heart Score History: -1- moderately suspicious ECG: -0- normal Age: -1- >45 - <65 Risk factory: -2- 3 or more risk factors or treated atherosclerosis Troponin: -0- < or = normal limit Score: 4 Risk: 16.6% Critical Care Time Critical Care Time Critical Care Time: Yes Total Critical Care Time: 40 Attestation: I personally attest to this critical care time spent taking care of the patient exclusive of all other billable procedures was approximately 40 minutes including initial evaluation of patient, ordering tests, x-ray interpretation, EKG interpretation, medical consultation, documentation, re-evaluation. Discharge Plan Discharge Clinical Impression: Chest pain Patient Disposition: Home, Self-Care Instructions: Chest Pain (ED) Additional Instructions: Please follow-up closely with your primary care provider in the beginning of next week. Return back to emergency department any new or worsening symptoms or concerns. Prescriptions: No Action calcium carbonate [Calcium 600] 600 mg calcium (1,500 mg) Tablet 600 mg PO DAILY cholecalciferol (vitamin D3) [Vitamin D3] 25 mcg (1,000 unit) Capsule 25 mcg PO DAILY magnesium oxide 400 mg magnesium Tablet 400 mg PO DAILY nicotine 14 mg/24 hr Patch 24 Hour 14 mg transdermal DAILY Qty: 28 2RF atorvastatin 80 mg Tablet 80 mg PO DAILY Qty: 30 2RF aspirin 81 mg Tablet,Chewable 81 mg PO DAILY Qty: 30 2RF losartan 100 mg tablet 100 mg PO DAILY Qty: 30 2RF hydrochlorothiazide 12.5 mg capsule 1 cap PO DAILY Referrals: Abraham Boss MD [Primary Care Provider] - Interventions: ED Discharge Assessment Last Done: 11/09/23 12:34 Discharge Date/Time: 11/09/23 12:35 Print Language: Haitian
[2023-11-09 09:17] LABS: Basophils Absolute Auto 0.1 X10*3/uL (0.0-0.2); Basophils Percent Auto 0.9 % (0-2); Eosinophils Absolute Auto 0.2 X10*3/uL (0.0-0.4); Eosinophils Percent Auto 3.4 % (0-4); Hematocrit 38.3 % (37.0-47.0); Hemoglobin 12.9 g/dl (12.0-16.0); Imm Gran Abs Auto 0.03 X10*3/uL (0.00-0.03); Imm Gran Pct Auto 0.5 % (0.0-0.4); Lymphocytes Absolute Auto 1.4 X10*3/uL (1.2-4.9); Mean Corpuscular HGB Conc 33.7 g/dl (31.0-35.0); Mean Corpuscular Hemoglobin 30.2 pg (27.0-33.0); Mean Corpuscular Volume 89.7 fL (80.0-98.0); Mean Platelet Volume 9.8 fL (9.4-12.3); Monocytes Absolute Auto 0.4 X10*3/uL (0.1-1.2); Monocytes Percent Auto 6.2 % (2-11); Neutrophils Absolute Auto 3.8 x10*3/uL (2.0-8.3); Platelet Count 263 X10*3/uL (160-400); Red Blood Count 4.27 X10*6/uL (4.20-5.50); Red Cell Distribution Width 13.4 % (11.0-16.0); White Blood Count 5.8 X10*3/uL (4.8-10.8)
[2023-11-09 09:24] LABS: Alanine Aminotransferase 21 U/L (0-31); Albumin Level 4.2 g/dL (3.5-5.0); Alkaline Phosphatase 99 U/L (39-117); Anion Gap 13 (12-20); Aspartate Amino Transferase 19 U/L (5-31); Bilirubin Direct 0.2 mg/dL (0.0-0.5); Bilirubin Total 0.5 mg/dL (0.0-1.0); Blood Urea Nitrogen 21 mg/dL (9-16); Calcium 9.4 mg/dL (8.4-10.2); Carbon Dioxide 24 mmol/L (22-29); Chloride 108 mmol/L (96-108); Creatinine Clr Calc Pharmacy 66.8; Estimated Glomerular Filt Rate > 60; Glucose Random 126 mg/dL (60-115); Lipase 23 U/L (8-78); Sodium 141 mmol/L (135-145)
[2023-11-09 09:28] LABS: Troponin-I High Sensitivity < 2.7 ng/L (<3.5-17.0)
[2023-11-09] MEDS: Aspirin 81 MG TAB.CHEW 243 MG PO (09:38)
[2023-11-09] MEDS: Nitroglycerin 2 % Oint 1 GM Packet 0.5 INCH TRANSDERMA (09:39)
[2023-11-09 10:30] LABS: B Type Natriuretic Peptide < 10 pg/mL (<100)
[2023-11-09 10:36] VITALS: BP 127/66; PULSE 66; RESP 15; TEMP 36.6; O2SAT 98
[2023-11-09 11:31] LABS: Troponin-I High Sensitivity < 2.7 ng/L (<3.5-17.0)
[2023-11-09 12:34] VITALS: BP 145/74; PULSE 68; RESP 19; TEMP 36.8; O2SAT 100
== END 2023-11-09 12:35 | disposition home or self-care (01) ==
PROVIDERS: Nurse Practitioner Family; Emergency Provider Student in an Organized Health Care Education/Training Program; PCP Internal Medicine
DX: R07.9 Chest pain, unspecified (principal); R00.0 Tachycardia, unspecified; I10 Essential (primary) hypertension; E78.5 Hyperlipidemia, unspecified; F17.210 Nicotine dependence, cigarettes, uncomplicated; Z86.73 Personal history of transient ischemic attack (TIA), and cerebral infarction without residual deficits; Z79.82 Long term (current) use of aspirin
CPT/HCPCS: 36415; 71046; 80048; 80076; 83690; 83880; 84484; 85025; 93005; 99283; 99285

== ENCOUNTER → 2023-11-09 08:48 | Outpatient (BNV) | payer MEDICARE, MEDICAID, SELFPAY | PROVIDERS: Emergency Provider Student in an Organized Health Care Education/Training Program; PCP Internal Medicine; Visit Provider Internal Medicine Cardiovascular Disease | DX: R07.9 Chest pain, unspecified (principal) | CPT/HCPCS: 93010 ==